=== PATIENT | male | born 1975 | race Caucasian/White ===

== ENCOUNTER → 2017-02-19 | Outpatient (CLI) | payer OTHER ==
[~2017-02-19] MED LIST: CEPH500C; ONDA4TAB11 PO; OSLT75C PO
--- NOTE | 2017-02-19 16:47 | Diagnostic Imaging Report ---
INDICATION: Right hip injury jumping off of a tractor. FINDINGS: Two views of the right hip show no fracture, dislocation, or other acute abnormalities. IMPRESSION: Negative right hip. Dictated by: Dictated on workstation # [id number]
== END ==
LOC: RAD 15:56
PROVIDERS: ATTEND Family Medicine
DX: S79.911A Unspecified injury of right hip, initial encounter (principal); W17.89XA Other fall from one level to another, initial encounter
CPT/HCPCS: 73502

== ENCOUNTER → 2017-07-04 | Outpatient (CLI) | payer OTHER ==
--- NOTE | 2017-07-04 11:15 | Diagnostic Imaging Report ---
Six views of the ribs, bilateral exam. INDICATION: Injury. FINDINGS: There is no rib fracture seen. The lungs appear clear. The heart size is normal. No effusion is noted. IMPRESSION: No rib fracture seen. Dictated by: Dictated on workstation # [id number]
--- NOTE | 2017-07-04 11:40 | Diagnostic Imaging Report ---
3 views of the lumbar spine. INDICATION: Injury. FINDINGS: There is straightening of the upper to mid lumbar spine curvature. The vertebral body heights are preserved. Disc heights are also preserved. The alignment of the posterior spinal line is satisfactory. There is no compression fracture. No significant degenerative changes. Minimal osteophytes are seen anteriorly in the lower lumbar spine. SI joints appear unremarkable. IMPRESSION: Straightening of the lumbar spine curvature is probably positional or related to muscle spasm. Dictated by: Dictated on workstation # [id number]
== END ==
LOC: RAD 10:08
PROVIDERS: ATTEND Family Medicine
DX: S39.92XA Unspecified injury of lower back, initial encounter (principal); S29.9XXA Unspecified injury of thorax, initial encounter; W55.89XA Other contact with other mammals, initial encounter; Y99.8 Other external cause status
CPT/HCPCS: 71110; 72100

== ENCOUNTER 2018-09-29 04:32 | Emergency (ER) | payer OTHER ==
[~2018-09-29] VITALS: Ht 185.4 cm; Wt 77.1 kg
[2018-09-29] MEDS ORDERED: ONDANSETRON 4 MG (ZOFRAN) ORAL DISSOLVE TAB SL ONE (05:00)
[2018-09-29] MEDS ORDERED: TETANUS,DIPTH,PERTUSS P/F (BOOSTRIX) 0.5 ML VIAL IM ONE (05:00)
--- NOTE | 2018-09-29 06:38 | ED Head Injury ---
General Chief Complaint: Head/Cervical Problems Stated Complaint: HEAD BUMP & LACERATION- Nursing Triage Note: Pt arrived by private vehicle with cc of head injury/laceration. Pt is alert, oriented and ambulatory at arrival. 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 Pt stated he got the bleeding to stop. He stated he almost lost consciousness and has been vomiting x 5. Source: patient Exam Limitations: no limitations History of Present Illness Date Seen by Provider: Sep 29, 2018 Time Seen by Provider: 04:45 Initial Comments This 43-year-old gentleman presents to the emergency room after striking his head on the corner of a metal box while at work. The incident occurred just after 03:00. He had hair loss of consciousness and has vomited several times since the injury occurred. He has a small laceration on the right parietal scalp that has quit bleeding. Allergies and Home Medications Allergies Coded Allergies: No Known Drug Allergies (Unverified Allergy, Mild, 05/12/09) Home Medications Ondansetron 4 Mg Tab.rapdis, 4 MG PO Q6H PRN Prescribed by: LAINA CLARK on 11/25/11 1618 Oseltamivir Phosphate 75 Mg Cap, 75 MG PO BID Prescribed by: LAINA CLARK on 11/25/11 1618 Patient Home Medication List Home Medication List Reviewed: Yes Review of Systems Review of Systems Constitutional: no symptoms reported Eyes: Blurred Vision Ears, Nose, Mouth, Throat: no symptoms reported Respiratory: no symptoms reported Cardiovascular: no symptoms reported Gastrointestinal: see HPI Genitourinary: no symptoms reported Musculoskeletal: no symptoms reported Skin: see HPI Psychiatric/Neurological: See HPI Endocrine: No Symptoms Reported Hematologic/Lymphatic: No Symptoms Reported Past Owrnloo-Wvxyny-Kuygwn Hx Past Med/Social Hx: Reviewed Nursing Past Med/Soc Hx Patient Social History Alcohol Use: Denies Use Recreational Drug Use: No Smoking Status: Never a Smoker Recent Foreign Travel: No Contact w/Someone Who Travel: No Recent Infectious Disease Expo: No Recent Hopitalizations: No Physical Abuse: No Sexual Abuse: No Mistreated: No Fear: No Seasonal Allergies Seasonal Allergies: No Past Medical History Surgeries: Yes (hernia ) Respiratory: No Cardiac: No Neurological: No Genitourinary: No Gastrointestinal: Yes Abdominal Hernia Musculoskeletal: No Endocrine: No HEENT: No Cancer: No Psychosocial: No Blood Disorders: No Physical Exam Vital Signs Vital Signs - First Documented 09/29/18 04:40 Temp 96.2 Pulse 74 Resp 18 B/P (MAP) 124/82 (96) Pulse Ox 98 O2 Delivery Room Air Capillary Refill : Less Than 3 Seconds Height, Weight, BMI Height: 6'1.00" Weight: 170lbs. 0oz. [id number]; BMI Method:Stated General Appearance: WD/WN, no apparent distress HEENT: PERRL/EOMI, TMs normal, other (subcentimeter laceration on the right parietal scalp there is no longer bleeding. This area is quite tender.) Neck: non-tender, full range of motion, supple, normal inspection Cardiovascular: regular rate, rhythm, no edema, no murmur Respiratory: lungs clear, normal breath sounds, no respiratory distress, no accessory muscle use Extremities: normal inspection, no pedal edema Psychiatric: alert Crainal Nerves: normal hearing, normal speech, PERRL Coordination/Gait: normal finger to nose, normal gait Motor/Sensory: no motor deficit, no sensory deficit Skin: normal color, warm/dry Henna Coma Score Best Eye Response: (4) Open Spontaneously Best Verbal Response: (5) Oriented Best Motor Response: (6) Obeys Commands Henna Total: 15 Progress/Results/Core Measures Results/Orders My Orders Orders - FILI NIEVES MD Vaccine Administration Single (09/29/18 ) Medications Given in ED Vital Signs/I&O Blood Pressure Mean: 96 Progress Progress Note : Progress Note Because patient has been significantly symptomatic with blurred vision, repeated vomiting, and near syncope, CT of the head was felt appropriate. CT was unremarkable for acute injury or hemorrhage. Tetanus booster was administered and Zofran was given for nausea. Concussion precautions reviewed and occupational health paperwork completed. Diagnostic Imaging Diagonstic Imaging: CT Plain Films/CT/US/NM/MRI: head Comments CT head viewed by me and [facility] report reviewed. No acute injury identified. Departure Impression Primary Impression: Concussion without loss of consciousness Qualified Codes: S06.0X0A - Concussion without loss of consciousness, initial encounter Additional Impression: Laceration of scalp Qualified Codes: S01.01XA - Laceration without foreign body of scalp, initial encounter Disposition: HOME, SELF-CARE Condition: Improved Departure-Patient Inst. Decision time for Depature: 06:34 Referrals: ALVINO TERRAZAS DO (PCP/Family) Primary Care Physician Patient Instructions: Concussion, Adult (DC) Add. Discharge Instructions: Rest in a quiet calm environment for the remainder of the day. Do not return to work or any type of strenuous activity until cleared by occupational health or another physician. If any activity causes worsening concussion symptoms including headache, blurry vision, confusion, nausea, irritability, etc., then please stop that activity and rest. Avoid any activity that would predispose you to further head injury such as use of ladders, contact sports, horseback or ATV riding, etc. until cleared. Drink plenty of clear liquids. For pain in May take ibuprofen up to 600 mg every 6 hours as needed and/or Tylenol (acetaminophen) up to 1000 mg every 6 hours. All discharge instructions reviewed with patient and/or family. Voiced understanding. FILI NIEVES MD Sep 29, 2018 06:38
[2018-09-29 06:43] VITALS: BP 107/74
--- NOTE | 2018-09-29 08:12 | Diagnostic Imaging Report ---
CLINICAL INDICATION: Patient with head injury/laceration. Patient hit head on metal box. Patient almost lost consciousness and has been vomiting x5. EXAMINATION: Axial CT scan of the brain performed without IV contrast. COMPARISON: None. FINDINGS: BRAIN PARENCHYMA: Unremarkable with normal acosta/ white matter distinction. There is no significant architectural distortion, midline shift, or herniation. VENTRICLES: Unremarkable with no hydrocephalus. BASAL CISTERNS: Unremarkable. SKULL/ ORBITS: Unremarkable. VISUALIZED SINUSES/ MASTOIDS: Unremarkable. IMPRESSION: Unremarkable CT scan of the brain. I agree with [facility] report. Dictated by: Dictated on workstation # [id number]
== END 2018-09-29 06:43 | disposition home or self-care (01) ==
LOC: EDUNIT# 04:32 → ER 04:37
DX: S06.0X0A Concussion without loss of consciousness, initial encounter (principal); S01.01XA Laceration without foreign body of scalp, initial encounter; Z98.890 Other specified postprocedural states; Z87.19 Personal history of other diseases of the digestive system; Z23 Encounter for immunization; W22.09XA Striking against other stationary object, initial encounter; Y92.85 Railroad track as the place of occurrence of the external cause; Y99.0 Civilian activity done for income or pay
CPT/HCPCS: 70450; 90715

== ENCOUNTER → 2018-12-24 | Outpatient (CLI) | payer OTHER ==
[~2018-12-24] MED LIST changes: +GADOBUTROL 7.5 MMOL/7.5 ML (GADAVIST) VIAL IV ONE
--- NOTE | 2018-12-24 09:32 | Diagnostic Imaging Report ---
CLINICAL INDICATION: Patient hit in head at work in September 2018. Patient has concussion, headaches, dizziness since. EXAM: MRI of the brain performed without and with 7 cc of Gadavist IV contrast. Sequences include axial DWI, ADC map, axial gradient echo, axial T2, axial FLAIR, axial T1, axial T1 post IV contrast, coronal T1 fat-sat post IV contrast, and sagittal T1 post IV contrast. COMPARISON: Head CT without contrast dated 09/29/2018. FINDINGS: There is no evidence of acute cerebral infarct, intracranial hemorrhage, or gross mass effect. There is no abnormal IV contrast enhancement. The brain parenchymal volume appears appropriate for patient's age. There is normal shah-white matter distinction. There is no significant midline shift or herniation. The [place] vascular structures show no gross abnormality as visualized. The pituitary gland, sella, and suprasellar regions are unremarkable as visualized. There is no evidence of hydrocephalus. The basal cisterns are unremarkable. The skull, extracranial soft tissue, and orbits are unremarkable. There is mild mucosal thickening involving ethmoid sinus. Temporal bones show no significant abnormality. IMPRESSION: Mild ethmoid sinus mucosal thickening. Otherwise, unremarkable MRI of the brain. Dictated by: Dictated on workstation # [id number]
== END ==
LOC: RAD 07:39
PROVIDERS: ATTEND Family Medicine
DX: S06.0X9A Concussion with loss of consciousness of unspecified duration, initial encounter (principal); J34.89 Other specified disorders of nose and nasal sinuses; R51 Headache
CPT/HCPCS: 70553

== ENCOUNTER 2019-01-19 19:54 | Emergency (ER) | payer OTHER ==
[~2019-01-19] VITALS: Ht 185.4 cm; Wt 70.3 kg
[~2019-01-19 19:54] MED LIST changes: -GADOBUTROL 7.5 MMOL/7.5 ML (GADAVIST) VIAL IV ONE
[2019-01-19] MEDS ORDERED: KETOROLAC 30 MG/ML VIAL IVP STA (20:16)
[2019-01-19] MEDS ORDERED: LACTATED RINGERS 1,000 ML IV ONE ×2 (20:16→21:49)
[2019-01-19] MEDS ORDERED: diphenhydrAMINE 50 MG/ML INJ (BENADRYL) IVP ONE (20:30)
[2019-01-19] MEDS ORDERED: ONDANSETRON 4 MG/2 ML (SDV) Z0FRAN IVP ONE (20:30)
[2019-01-19 21:09] LABS: BASOPHILS # (AUTO) 0.1 10^3/uL (0.0-0.1); BASOPHILS % (AUTO) 1 % (0-10); EOSINOPHILS # (AUTO) 0.1 10^3/uL (0.0-0.3); EOSINOPHILS % (AUTO) 2 % (0-10); HEMATOCRIT 44 % (40-54); LYMPHOCYTES % (AUTO) 25 % (12-44); MEAN CORPUSCULAR HEMOGLOBIN 32 PG (25-34); MEAN CORPUSCULAR HGB CONC 35 G/DL (32-36); MEAN CORPUSCULAR VOLUME 92 FL (80-99); MEAN PLATELET VOLUME 11.6 FL (7.4-10.4); MONOCYTES # (AUTO) 0.5 X 10^3 (0.0-1.0); MONOCYTES % (AUTO) 7 % (0-12); NEUTROPHILS # (AUTO) 5.1 X 10^3 (1.8-7.8); NEUTROPHILS % (AUTO) 66 % (42-75); PLATELET COUNT 275 10^3/uL (130-400); RED CELL DISTRIBUTION WIDTH 12.5 % (10.0-14.5); WHITE BLOOD COUNT 7.8 10^3/uL (4.3-11.0)
--- NOTE | 2019-01-19 21:10 | ED Headache ---
General Chief Complaint: Head/Cervical Problems Stated Complaint: HEADACHE Nursing Triage Note: PT HAD A HEAD INJURY IN SEPTEMBER AND SINCE HE HAS HAD MIGRAINES. MIGRAINE STARTED TODAY ABOUT AN HR AGO Nursing Sepsis Screen: No Definite Risk Source: patient (VERY DIFFICULT HISTORIAN) History of Present Illness Date Seen by Provider: January 19, 2019 Time Seen by Provider: 20:00 Initial Comments PT ARRIVES VIA POV FROM HOME WITH C/O HEADACHE--STARTED 30 MINUTES AGO STATES HE WAS SITTING IN HIS TRUCK AND HIS HEAD STARTED POUNDING AND THEN HE ' "DOESN'T REMEMBER ANYTHING" C/O NAUSEA, DOES NOT KNOW IF HE VOMITED OR NOT NO VISION CHANGES NO PARESTHESIAS OR MOTOR DEFICITS NO FEVER, URI SYMPTOMS OR RECENT ILLNESS HAS NOT TAKEN ANYTHING FOR SYMPTOMS STATES HE HAD A HEAD INJURY IN SEPTEMBER--WAS AT WORK AND FELL AND HIT HIS HEAD ON A METAL BOX HAS BEEN HAVING HEADACHES EVER SINCE HAD MRI 12/24/18, WHICH WAS NORMAL PT HAS BEEN REFERRED TO NEUROLOGIST, DR. RAMAN, FIRST APPOINTMENT IS 02/25/19 PT HAS BEEN SEEING DR. TERRAZAS FOR THIS PROBLEM, WELL OCCUPATIONAL HEALTH. PT STATES HE HAS BEEN TAKING XANAX FOR HIS HEADACHES, STATES WHEN HIS HEAD STARTS POUNDING, HE GETS REAL ANXIOUS AND THEN HAS A PANIC ATTACK BECAUSE OF THE HEADACHE STATES HE HAS BEEN PRESCRIBED A COUPLE OF MEDICATIONS FOR HEADACHES, BUT STATES HE HAS NOT BEEN TAKING THEM BECAUSE THEY UPSET HIS STOMACH PT ALSO STATES HE HAS LOST OVER 50 LBS SINCE THIS STARTED IN SEPTEMBER--STATES HE GETS ANXIOUS AND THEN HE CAN'T EAT. STATES DR. TERRAZAS STARTED HIM ON A MEDICATION TO STIMULATE HIS APPETITE, BUT HE HAS NOT BEEN TAKING IT, BECAUSE HE DIDN'T LIKE THE WAY HE FELT WHEN HE TOOK IT, BUT CANNOT DESCRIBE SYMPTOMS. TO MOST QUESTIONS, HE ANSWERS "I DON'T KNOW" OR "I DON'T REMEMBER" SAW DR. TERRAZAS THIS AM FOR ROUTINE FOLLOW UP. ALSO SAW HIM A WEEK AGO FOR FOLLOW UP PCP: DR. TERRAZAS Allergies and Home Medications Allergies Coded Allergies: No Known Drug Allergies (Unverified , 05/12/09) Home Medications Ondansetron 4 Mg Tab.rapdis, 4 MG PO Q6H PRN Prescribed by: LAINA CLARK on 11/25/11 1618 Oseltamivir Phosphate 75 Mg Cap, 75 MG PO BID Prescribed by: LAINA CLARK on 11/25/11 1618 Patient Home Medication List Home Medication List Reviewed: Yes Review of Systems Review of Systems Constitutional: No dizziness Eyes: No Symptoms Reported Ears, Nose, Mouth, Throat: no symptoms reported Respiratory: no symptoms reported Cardiovascular: no symptoms reported Gastrointestinal: see HPI, nausea Genitourinary: no symptoms reported Musculoskeletal: no symptoms reported Skin: no symptoms reported Psychiatric/Neurological: See HPI, Anxiety, Headache; Denies Numbness, Denies Paresthesia, Denies Seizure, Denies Tingling; Tremors; Denies Weakness Past Mpddqjo-Mvxcec-Idixzz Hx Patient Social History Alcohol Use: Denies Use Recreational Drug Use: No Smoking Status: Never a Smoker Recent Foreign Travel: No Contact w/Someone Who Travel: No Recent Infectious Disease Expo: No Recent Hopitalizations: No Seasonal Allergies Seasonal Allergies: No Past Medical History Surgeries: Yes (HERNIA REPAIR) Abdominal Respiratory: No Cardiac: No Neurological: Yes (CONCUSSION 09/2018) Concussion Genitourinary: No Gastrointestinal: Yes Abdominal Hernia Musculoskeletal: No Endocrine: No HEENT: No Cancer: No Psychosocial: Yes Anxiety Integumentary: No Blood Disorders: No Physical Exam Vital Signs Vital Signs - First Documented 01/19/19 20:03 Temp 97.9 Pulse 84 Resp 18 B/P (MAP) 135/77 (96) Pulse Ox 100 O2 Delivery Room Air Capillary Refill : Less Than 3 Seconds Height, Weight, BMI Height: 6'1.00" Weight: 155lbs. 0oz. 70.113385uv; BMI Method:Stated General Appearance: thin, other (EXTREMELY DRAMATIC AND NEARLY HYSTERICAL. VERY TREMULOUS. EXTREMELY ANXIOUS, HOLDING HIS HANDS OVER HIS FOREHEAD AND EYES . CRYING AT ONE POINT. ) HEENT: PERRL/EOMI, normal ENT inspection, TMs normal, pharynx normal Neck: non-tender, full range of motion, supple, normal inspection Cardiovascular: regular rate, rhythm, no murmur Respiratory: normal breath sounds, no respiratory distress, no accessory muscle use Gastrointestinal: non tender, soft Extremities: normal inspection, no pedal edema, no calf tenderness, normal capillary refill Psychiatric: alert, oriented x 3, other ( ABOVE. ) Crainal Nerves: normal speech, PERRL Coordination/Gait: normal gait Motor/Sensory: no motor deficit, no sensory deficit Skin: normal color, warm/dry Progress/Results/Core Measures Results/Orders Lab Results Laboratory Tests Test 01/19/19 20:35 Range/Units White Blood Count 7.8 4.3-11.0 10^3/uL Red Blood Count 4.75 4.35-5.85 10^6/uL Hemoglobin 15.0 13.3-17.7 G/DL Hematocrit 44 40-54 % Mean Corpuscular Volume 92 80-99 FL Mean Corpuscular Hemoglobin 32 25-34 PG Mean Corpuscular Hemoglobin Concent 35 32-36 G/DL Red Cell Distribution Width 12.5 10.0-14.5 % Platelet Count 275 130-400 10^3/uL Mean Platelet Volume 11.6 H 7.4-10.4 FL Neutrophils (%) (Auto) 66 42-75 % Lymphocytes (%) (Auto) 25 12-44 % Monocytes (%) (Auto) 7 0-12 % Eosinophils (%) (Auto) 2 0-10 % Basophils (%) (Auto) 1 0-10 % Neutrophils # (Auto) 5.1 1.8-7.8 X 10^3 Lymphocytes # (Auto) 2.0 1.0-4.0 X 10^3 Monocytes # (Auto) 0.5 0.0-1.0 X 10^3 Eosinophils # (Auto) 0.1 0.0-0.3 10^3/uL Basophils # (Auto) 0.1 0.0-0.1 10^3/uL Sodium Level 143 135-145 MMOL/L Potassium Level 3.8 3.6-5.0 MMOL/L Chloride Level 107 98-107 MMOL/L Carbon Dioxide Level 24 21-32 MMOL/L Anion Gap 12 5-14 MMOL/L Blood Urea Nitrogen 18 7-18 MG/DL Creatinine 1.19 0.60-1.30 MG/DL Estimat Glomerular Filtration Rate > 60 BUN/Creatinine Ratio 15 Glucose Level 101 70-105 MG/DL Calcium Level 10.6 H 8.5-10.1 MG/DL Corrected Calcium 10.2 H 8.5-10.1 MG/DL Magnesium Level 2.6 H 1.8-2.4 MG/DL Total Bilirubin 0.5 0.1-1.0 MG/DL Aspartate Amino Transf (AST/SGOT) 15 5-34 U/L Alanine Aminotransferase (ALT/SGPT) 20 0-55 U/L Alkaline Phosphatase 44 40-136 U/L Total Protein 7.4 6.4-8.2 GM/DL Albumin 4.5 3.2-4.5 GM/DL My Orders Orders - HAMILTON URIBE DO Ed Iv/Invasive Line Start (01/19/19 20:16) Ed Iv/Invasive Line Start (01/19/19 20:16) Lactated Ringers (Lr 1000 Ml Iv Solution (01/19/19 20:16) Ondansetron Injection (Zofran Injectio (01/19/19 20:30) Ketorolac Injection (Toradol Injection) (01/19/19 20:16) Diphenhydramine Injection (Benadryl Inje (01/19/19 20:30) Lorazepam Injection (Ativan Injection) (01/19/19 21:15) Cbc With Automated Diff (01/19/19 21:02) Comprehensive Metabolic Panel (01/19/19 21:02) Magnesium (01/19/19 21:02) Ed Iv/Invasive Line Start (01/19/19 21:49) Lactated Ringers (Lr 1000 Ml Iv Solution (01/19/19 21:49) Medications Given in ED Current Medications Medications Dose Ordered Sig/Myesha Route Start Time Stop Time Status Last Admin Dose Admin Diphenhydramine HCl 50 mg ONCE ONCE IVP 01/19/19 20:30 01/19/19 20:31 DC 01/19/19 20:34 50 MG Lactated Ringer's 1,000 ml @ 0 mls/hr Q0M ONCE IV 01/19/19 20:16 01/19/19 20:19 DC 01/19/19 20:33 999 MLS/HR Lactated Ringer's 1,000 ml @ 0 mls/hr Q0M ONCE IV 01/19/19 21:49 01/19/19 21:50 DC 01/19/19 22:00 999 MLS/HR Lorazepam 2 mg ONCE ONCE IVP 01/19/19 21:15 01/19/19 21:58 DC 01/19/19 21:11 2 MG Ondansetron HCl 4 mg ONCE ONCE IVP 01/19/19 20:30 01/19/19 20:31 DC 01/19/19 20:34 4 MG Vital Signs/I&O 5/7/19 5/7/19 20:03 22:38 Temp 97.9 97.9 Pulse 84 79 Resp 18 18 B/P (MAP) 135/77 (96) 105/66 (79) Pulse Ox 100 100 O2 Delivery Room Air 01/20/19 00:00 Intake Total 2000 ml Balance 2000 ml Blood Pressure Mean: 96 Progress Progress Note : Progress Note WANTS ICE PACK FOR HIS HEAD AND TOWEL FOR HIS FACE/EYES--YET DENIES PHOTOPHOBIA GIVEN TORADOL, ZOFRAN, BENADRYL, ATIVAN PT MUCH CALMER, NO LONGER TREMULOUS, PT NO LONGER HAS HAND OR TOWEL OVER FACE OR ICE PACK ON HIS HEAD SITTING UPRIGHT IN BED. PT STATES SYMPTOMS MUCH IMPROVED WITH FLUIDS AND MEDICATIONS, WANTS TO GO HOME Departure Impression Primary Impression: EXACERBATION OF CHRONIC HEADACHE Additional Impressions: S/P CONCUSSION 09/2018 Anxiety Disposition: HOME, SELF-CARE Condition: Improved Departure-Patient Inst. Referrals: ALVINO TERRAZAS DO (PCP/Family) Primary Care Physician Patient Instructions: Headache, Adult (DC), Concussion, Adult (DC), Anxiety, Adult (DC) Add. Discharge Instructions: HOME, REST LOTS OF CLEAR LIQUIDS TAKE YOUR MEDICATIONS PRESCRIBED FOLLOW UP WITH DR. TERRAZAS THIS WEEK FOR FURTHER CARE All discharge instructions reviewed with patient and/or family. Voiced understanding. HAMILTON URIBE DO January 19, 2019 21:10
[2019-01-19] MEDS ORDERED: LORazepam INJ 2 MG/ML (ATIVAN) VIAL IVP ONE (21:15)
[2019-01-19 21:21] LABS: ALANINE AMINOTRANSFERASE 20 U/L (0-55); ALBUMIN 4.5 GM/DL (3.2-4.5); ALKALINE PHOSPHATASE 44 U/L (40-136); BILIRUBIN,TOTAL 0.5 MG/DL (0.1-1.0); BUN/CREATININE RATIO 15; CALCIUM 10.6 MG/DL (8.5-10.1); CARBON DIOXIDE 24 MMOL/L (21-32); CHLORIDE 107 MMOL/L (98-107); CREATININE SERUM 1.19 MG/DL (0.60-1.30); GFR ESTIMATED > 60; GLUCOSE 101 MG/DL (70-105); MAGNESIUM 2.6 MG/DL (1.8-2.4); POTASSIUM 3.8 MMOL/L (3.6-5.0); SODIUM 143 MMOL/L (135-145); TOTAL PROTEIN 7.4 GM/DL (6.4-8.2)
[2019-01-19 22:38] VITALS: BP 105/66
== END 2019-01-19 22:39 | disposition home or self-care (01) ==
LOC: EDUNIT# 19:54 → ER 19:55
DX: S06.0X9A Concussion with loss of consciousness of unspecified duration, initial encounter (principal); F41.9 Anxiety disorder, unspecified; Z98.890 Other specified postprocedural states; Z86.69 Personal history of other diseases of the nervous system and sense organs; Z91.14 Patient's other noncompliance with medication regimen; X58.XXXA Exposure to other specified factors, initial encounter
CPT/HCPCS: 36415; 80053; 83735; 85025; 96361; 96374; 96375

== ENCOUNTER 2019-03-03 10:00 | Emergency (ER) | payer OTHER ==
[~2019-03-03] VITALS: Ht 182.9 cm; Wt 70.3 kg
[2019-03-03] MEDS ORDERED: diphenhydrAMINE 50 MG/ML INJ (BENADRYL) ONE (10:53)
[2019-03-03] MEDS ORDERED: PROMETHAZINE INJ 25 MG/ML (PHENERGAN) AMP ONE (10:53)
[2019-03-03] MEDS ORDERED: KETOROLAC 30 MG/ML VIAL ONE (10:54)
[2019-03-03] MEDS ORDERED: NS IV 1000 ML 1,000 ML ONE (10:54)
[2019-03-03] MEDS ORDERED: DEXAMETHASONE 10 MG/ML (DECADRON) 1 ML VIAL ONE (10:54)
--- NOTE | 2019-03-03 11:45 | NUR ---
PT COMPLAINS OF FEELING ANXIOUS AND HAVING SOME ITCHING ON HIS LEGS. DR NOTIFIED WHO WENT AND TALKED TO THE PT.
[2019-03-03] MEDS ORDERED: diphenhydrAMINE 50 MG/ML INJ (BENADRYL) IVP ONE ×2 (12:00→12:30)
--- NOTE | 2019-03-03 12:15 | NUR ---
PT UP TO BATHROOM..
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
[2019-03-03] MEDS ORDERED: NS IV 1000 ML 1,000 ML IV SCH (12:30)
[2019-03-03] MEDS ORDERED: PROMETHAZINE INJ 25 MG/ML (PHENERGAN) AMP IVP ONE (12:30)
[2019-03-03] MEDS ORDERED: DEXAMETHASONE 10 MG/ML (DECADRON) 1 ML VIAL IV ONE (12:30)
[2019-03-03] MEDS ORDERED: KETOROLAC 30 MG/ML VIAL IVP ONE (12:30)
[2019-03-03 12:50] VITALS: BP 109/64
--- OUTSIDE RECORDS SUMMARY | 2019-03-03 13:29 | XMS REPORT | Encounter Summary ---
Author Author [facility] Organization [facility] Address Unknown Phone Unavailable Care Team Providers Care Apparel Sales Associate Name Role Phone Girish Varghese DO PCP Reason for Visit * Reason Comments Headache Encounter Details Care Team Description Date Type Department Sher Phelps MD [address] [facility] [place] [address] 01/26/2019 Emergency [facility] [address] [place] [address] Social History Date Tobacco Use Types Packs/Day Years Used Never Smoker Smokeless Tobacco: Never Used Drinks/Week oz/Week Comments Alcohol Use Never Alcohol Habits Answer Date Recorded How often do you have a drink containing alcohol? Never 01/26/2019 How many drinks containing alcohol do you have on Not asked a typical day when you are drinking? How often do you have six or more drinks on one Not asked occasion? Sex Assigned at Date Recorded Not on file Industry Job Start Date Occupation Not on file Not on file Not on file Travel End Travel History Travel Start No recent travel history available. documented as of this encounter Last Filed Vital Signs Reading Time Taken Comments Vital Sign 96/67 01/26/2019 12:26 PM CDT Blood Pressure - - Pulse 36.5 C (97.7 F) 01/26/2019 7:54 AM CDT Temperature - - Respiratory Rate 98% 01/26/2019 12:26 PM CDT Oxygen Saturation - - Inhaled Oxygen Concentration 70.8 kg (156 lb) 01/26/2019 7:54 AM CDT Weight - - Height - - Body Mass Index documented in this encounter Discharge Instructions * Instructions* Darnell Matta MD - 01/26/2019 You were seen at the [facility] Emergency Department for headaches aft er a concussion. Your imaging and exam were reassuring. Neurology was consulte d who recommended a combination of ibuprofen 600 mg, Compazine 10 mg, Benadryl 2 5 mg, magnesium 400 mg to use for your headache symptoms. You can use this comb ination up to every 6 hours. Do not use greater than 5 times per week. You can use this to terminate severe headaches. You can also start on amitriptyline 10 mg nightly for the next 2 weeks. Increase this to 20 mg nightly after that shital e. Take this until your follow-up with neurology. Return to the emergency depa rtment for any numbness, weakness, uncontrolled pain, or new concerning symptoms . Follow-up with your primary care provider and a neurologist for this visit. If you received any narcotic pain medications or sedatives while in the ED you s hould not drive/operate machinery or perform any high risk activity for 24 hours , or while on those medications. This includes any pain medication other than ty lenol, ibuprofen, or toradol. This includes any medication for anxiety. If your blood pressure is over 130/90, you should see your doctor to get your bl ood pressure rechecked. Please report to nearest emergency department for any sudden decline in overall health, new symptoms, or any other concern. * Attachments The following attachments cannot be sent through Care Everywhere.* Headache, Migraine, Classic (SCOTTISH) documented in this encounter Medications at Time of Discharge Start Date End Date Medication Sig Dispensed Refills 01/26/2019 03/09/2019 amitriptyline (ELAVIL) 10 Take one 70 tablet 0 mg tablet tablet by mouth at bedtime daily for 14 days, THEN two tablets at bedtime daily for 28 days. 01/26/2019 Magnesium 200 mg tab Take two 20 tablet 0 tablets by mouth every 6 hours as needed. With headache cocktail 01/26/2019 prochlorperazine maleate Take one 20 tablet 0 (COMPAZINE) 10 mg tablet tablet by mouth every 6 hours as needed (Headache). documented as of this encounter Consult Notes * Erwin Ricci MD - 01/26/2019 9:56 AM CDT Associated Order(s): CONSULT NEUROLOGY PHYSICIAN Neurology Consult Note Admission Date: 01/26/2019 LOS: 0 days Reason for Consult: Headache after head injury and syncope Consult type: Opinion Assessment Nael Molina is a 43 y.o. male with no past medical history who presents for h eadache and episodes of syncope with severe headaches and vomiting. Neuro Exam: Wearing sunglasses, normal neurological exam, able to walk tandem gait with ease Diagnostics/Imaging: CT head and MRI head from OSH appear unremarkable Impression Post concussive syndrome with post traumatic headaches that are chronic. Episodes sounds like syncope, but if continue even with headache control could c onsider EEG outpatient. Recommendations Amitriptyline 10mg qhs for two weeks then can increase to 20mg qhs Migraine cocktail for abortive as needed. Not to take more than 5x a week Ibuprofen 600mg Compazine 10mg Benadryl 25mg Magnesium 400mg Patient already has follow up in February with Neurologist closer to home. Patient was seen and discussed with staff. Thank you for the consult. Please page [phone] with questions. Ozzy Ricci MD PGY 4 Neurology History of Present Illness: Nael Molina is a 43 y.o. male with no past medical history who presents for headache and episodes of syncope with severe headaches and vomiting. Patient hit head at work on September 29 when head hit a metal box. He started to have headaches October 02-. He gets headaches daily to every oth er day. He has a hammer feeling in his head on top of head where he had hit his head. He has intense nausea and vomiting with these episodes. He also has photo/ phonophobia with them. He has lost forty pounds he states with decreased appetit e and vomiting. He passed out two times after a lot of vomiting. He was standing up when he passed out. He has had light headed feeling with the headaches at ti mes as well. No seizure history. No shaking episodes. Comes back to self quickly . He has not tried any meds besides naprosyn and excedrin migraine. PCP gave him xanax and tried Remeron. Neither have helped and stopped Remeron. He has not ta donnell any meds in 2 weeks. He has never tried headache prophylactice. He states ma ybe a little balance trouble and memory trouble with headaches. History reviewed. No pertinent past medical history. Surgical History: Procedure Laterality Date HERNIA REPAIR Social History Tobacco Use Smoking status: Not on file Substance Use Topics Alcohol use: Never Frequency: Never Drug use: Never History reviewed. No pertinent family history. Allergies: Patient has no known allergies. Scheduled Meds:Continuous Infusions: PRN and Respiratory Meds: Review of Systems: A 14 point review of systems was negative except for: Neurological: positive for headaches Vital Signs: Last Filed in 24 hours Vital Signs: 24 hour Range BP: 119/92 (01/26 754) Temp: 36.5 C (97.7 F) (01/26 754) SpO2: 98 % (01/26 754) SpO2 Pulse: 75 (01/26 754) BP: (119)/(92) Temp: [36.5 C (97.7 F)] SpO2: [98 %] General physical exam: HEENT: normocephalic, eyes open with no discharge, nares patent, oropharynx is c lear with no lesions, palate intact CV: regular rate, distal pulses palpable Chest: normal configuration, equal chest rise bilaterally Ab: soft Skin: no rashes or lesions Neuro exam: Mental status: alert, oriented to person/place/time Speech: Normal Abnormal Fluency x Comprehension x Articulation x Repetition x Naming x Cranial Nerves: Normal Abnormal II PERRLA, visual schaefer full to confrontation III, IV, EOMI w/o nystagmus V Intact to light touch in V1-V3 bilaterally VII No facial asymmetry, orbicularis oculi and tasha strength 5/5 VIII Intact to finger rub bilaterally IX, X Symmetric palatal elevation XI Shoulder shrug 5/5 bilaterally XII Tongue protrudes in midline Muscle/motor: Tone: nml Bulk: nml Fasciculations: none Pronator drift: none NF NE SA EF EE WE WF FF FE FA TA HF DIAZ HE KF KE DF PF R 5 5 5 5 5 5 5 5 5 5 5 5 5 5 5 5 L 5 5 5 5 5 5 5 5 5 5 5 5 5 5 5 5 Sensation: Normal RUE LUE RLE LLE Light Touch x Coordination: Normal Abnormal Right Abnormal Left Finger to Nose x Heel to Caba x Gait and Station: Normal gait with good arm swing. Normal heel, toe, and tandem gait. No decomposi tion of turn. Reflexes: Right Left Triceps 2 2 Biceps 2 2 Brachioradialis 2 2 Patella 2 2 Ankle 2 2 Suarez nl nl Lab/Radiology/Other Diagnostic Tests: 24-hour labs: Results for orders placed or performed during the hospital encounter of 01/26/19 (from the past 24 hour(s)) CBC AND DIFF Collection Time: 01/26/19 8:55 AM Result Value Ref Range White Blood Cells 6.0 4.5 - 11.0 K/UL RBC 4.63 4.4 - 5.5 M/UL Hemoglobin 14.9 13.5 - 16.5 GM/DL Hematocrit 44.2 40 - 50 % MCV 95.4 80 - 100 FL MCH 32.1 26 - 34 PG MCHC 33.6 32.0 - 36.0 G/DL RDW 12.5 11 - 15 % Platelet Count 251 150 - 400 K/UL MPV 9.3 7 - 11 FL Neutrophils 62 41 - 77 % Lymphocytes 25 24 - 44 % Monocytes 10 4 - 12 % Eosinophils 2 0 - 5 % Basophils 1 0 - 2 % Absolute Neutrophil Count 3.70 1.8 - 7.0 K/UL Absolute Lymph Count 1.50 1.0 - 4.8 K/UL Absolute Monocyte Count 0.60 0 - 0.80 K/UL Absolute Eosinophil Count 0.10 0 - 0.45 K/UL Absolute Basophil Count 0.00 0 - 0.20 K/UL COMPREHENSIVE METABOLIC PANEL Collection Time: 01/26/19 8:55 AM Result Value Ref Range Sodium 137 137 - 147 MMOL/L Potassium 4.0 3.5 - 5.1 MMOL/L Chloride 104 98 - 110 MMOL/L Glucose 92 70 - 100 MG/DL Blood Urea Nitrogen 15 7 - 25 MG/DL Creatinine 0.97 0.4 - 1.24 MG/DL Calcium 9.8 8.5 - 10.6 MG/DL Total Protein 7.0 6.0 - 8.0 G/DL Total Bilirubin 0.4 0.3 - 1.2 MG/DL Albumin 4.3 3.5 - 5.0 G/DL Alk Phosphatase 40 25 - 110 U/L AST (SGOT) 10 7 - 40 U/L CO2 28 21 - 30 MMOL/L ALT (SGPT) 13 7 - 56 U/L Anion Gap 5 3 - 12 eGFR Non >60 >60 mL/min eGFR >60 >60 mL/min Ozzy Ricci MD Pager [phone] Associated attestation - Michael Brady MD - 01/28/2019 6:09 PM CDT ATTESTATION I personally performed the lund portions of the E/M visit, discussed case with re sident and concur with resident documentation of history, physical exam, assessm ent, and treatment plan unless otherwise noted. I saw and examined the patient today on rounds with Dr. Ricci and the rest of the neurology consultation team. Laboratory results were reviewed. WBC 6.0. Hgb 14.9. MCV 95.4. RDW 12.5. Platele ts 251k. Sodium 137. Potassium 4.0. Chloride 104. Glucose 92. BUN 15. Cr 0.97. e GFR > 60. Calcium 9.8. Albumin 4.3. Total protein 7.0. Total bilirubin 0.4. AST 10. ALT 13. Alk phos 40. CO2 28. Anion gap 5. Independent review of his head CT without contrast from today, January 26, 2019 show s evidence of a completely normal scan. I reviewed Dr. Ricci's impression and summarize my own impression as follows: - Post-concussive syndrome. - Chronic post-traumatic headache. - Syncope, unspecified. I agree with Dr. Ricci's recommendations. Thank you for requesting a neurology consultation. Please call with any questions. Michael Brady MD Date: January 26, 2019 Neurology/Movement Disorders Attending Pager [phone] documented in this encounter ED Notes * Ani Siddiqui RN - 01/26/2019 1:34 PM CDT Pt verbalizes understanding of discharge instructions and has no further questio ns. * Ani Siddiqui RN - 01/26/2019 12:34 PM CDT Pt states significant improvement in headache. * Ani Siddiqui RN - 01/26/2019 8:42 AM CDT Pt comes to the ED for recurring head aches. September 29 pt was involved in a wor kplace accident where he fell and hit the top of his head. Pt followed the concu ssion protocol from initial facility. Since accident he has had recurrent headac hes. On two occasions, most recently last Friday, the pain was so intense suzan t he lost consciousness. Headaches are occasionally associated with blurry visio n in right eye. Hat, sunglasses, vest, shirt, pants, boots remain on. Pt does not wish to store belongings at this time. * Sher Phelps MD - 01/26/2019 8:40 AM CDT Nael Molina is a 43 y.o. male. Chief Complaint: Chief Complaint Patient presents with Headache History of Present Illness: Patient is a 43-year-old male with no significant PMH presenting with headaches . The patient reports that September 29 he had a mechanical fall when he did hit his head on a metal box. He is unsure if he lost consciousness at that time but had a severe laceration with vomiting that followed. He was taken to the emerg ency department where CT scan and repair of his laceration was performed. He re ports that he had been off work until December 08. He states that he has had recur rent headaches since that time. He said most recently he has started work and i s having headaches every other day. He states that the symptoms are often accom panied by nausea, right eye vision change, right-sided sharp headaches, lighthea dedness. He endorses weight change due to the amount of vomiting and inversion of food. He states he is followed up with his primary care provider who was mos t recently concerned as the headaches and vomiting are then followed by syncopal episodes. The patient reports after retching vomiting he has syncope. He axel es any headache at this time. He denies any chest pain, shortness of breath, ne ck stiffness, fever. History provided by: Patient Review of Systems: Review of Systems Constitutional: Negative. Negative for chills, fatigue and fever. HENT: Negative. Negative for congestion and sinus pain. Eyes: Positive for visual disturbance. Respiratory: Negative for cough, shortness of breath and wheezing. Cardiovascular: Negative. Negative for chest pain. Gastrointestinal: Positive for nausea and vomiting. Negative for abdominal diste ntion, abdominal pain, constipation and diarrhea. Genitourinary: Negative. Negative for dysuria and urgency. Musculoskeletal: Negative. Negative for neck pain and neck stiffness. Skin: Negative. Negative for rash. Neurological: Positive for syncope and headaches. Negative for dizziness, seizur es, weakness, light-headedness and numbness. Psychiatric/Behavioral: Negative. Negative for agitation and confusion. All other systems reviewed and are negative. Allergies: Patient has no known allergies. Past Medical History: History reviewed. No pertinent past medical history. Past Surgical History: Surgical History: Procedure Laterality Date HERNIA REPAIR Pertinent medical/surgical history reviewed Social History: Social History Tobacco Use Smoking status: Never Smoker Smokeless tobacco: Never Used Substance Use Topics Alcohol use: Never Frequency: Never Drug use: Never Social History Substance and Sexual Activity Drug Use Never Family History: History reviewed. No pertinent family history. Vitals: ED Vitals Date and Time T BP P RR SPO2P SPO2 User 01/26/19 1226 -- 96/67 -- 16 PER MINUTE 59 98 % 01/26/19 1020 -- -- -- -- 78 97 % EP 01/26/19 0800 -- 122/90 -- -- -- -- EP 01/26/19 0754 36.5 C (97.7 F) 119/92 -- -- 75 98 % EP Physical Exam: Physical Exam Constitutional: He is oriented to person, place, and time. He appears well-devel oped and well-nourished. No distress. HENT: Head: Normocephalic and atraumatic. Mouth/Throat: Oropharynx is clear and moist and mucous membranes are normal. Eyes: Pupils are equal, round, and reactive to light. Conjunctivae and EOM are n ormal. Neck: Normal range of motion. Neck supple. No tracheal deviation present. Cardiovascular: Normal rate, regular rhythm, normal heart sounds, intact distal pulses and normal pulses. Exam reveals no gallop and no friction rub. No murmur heard. Pulses: Radial pulses are 2+ on the right side, and 2+ on the left side. Dorsalis pedis pulses are 2+ on the right side, and 2+ on the left side. Pulmonary/Chest: Effort normal and breath sounds normal. He has no wheezes. He h as no rales. Abdominal: Soft. He exhibits no distension. There is no tenderness. There is no rebound and no guarding. Musculoskeletal: Normal range of motion. He exhibits no edema. Neurological: He is alert and oriented to person, place, and time. He has normal strength. No cranial nerve deficit or sensory deficit. Coordination normal. Skin: Skin is warm and dry. Capillary refill takes less than 2 seconds. He is no t diaphoretic. Psychiatric: He has a normal mood and affect. Nursing note and vitals reviewed. Laboratory Results: Labs Reviewed CBC AND DIFF Result Value Ref Range Status White Blood Cells 6.0 4.5 - 11.0 K/UL Final RBC 4.63 4.4 - 5.5 M/UL Final Hemoglobin 14.9 13.5 - 16.5 GM/DL Final Hematocrit 44.2 40 - 50 % Final MCV 95.4 80 - 100 FL Final MCH 32.1 26 - 34 PG Final MCHC 33.6 32.0 - 36.0 G/DL Final RDW 12.5 11 - 15 % Final Platelet Count 251 150 - 400 K/UL Final MPV 9.3 7 - 11 FL Final Neutrophils 62 41 - 77 % Final Lymphocytes 25 24 - 44 % Final Monocytes 10 4 - 12 % Final Eosinophils 2 0 - 5 % Final Basophils 1 0 - 2 % Final Absolute Neutrophil Count 3.70 1.8 - 7.0 K/UL Final Absolute Lymph Count 1.50 1.0 - 4.8 K/UL Final Absolute Monocyte Count 0.60 0 - 0.80 K/UL Final Absolute Eosinophil Count 0.10 0 - 0.45 K/UL Final Absolute Basophil Count 0.00 0 - 0.20 K/UL Final COMPREHENSIVE METABOLIC PANEL Sodium 137 137 - 147 MMOL/L Final Potassium 4.0 3.5 - 5.1 MMOL/L Final Chloride 104 98 - 110 MMOL/L Final Glucose 92 70 - 100 MG/DL Final Blood Urea Nitrogen 15 7 - 25 MG/DL Final Creatinine 0.97 0.4 - 1.24 MG/DL Final Calcium 9.8 8.5 - 10.6 MG/DL Final Total Protein 7.0 6.0 - 8.0 G/DL Final Total Bilirubin 0.4 0.3 - 1.2 MG/DL Final Albumin 4.3 3.5 - 5.0 G/DL Final Alk Phosphatase 40 25 - 110 U/L Final AST (SGOT) 10 7 - 40 U/L Final CO2 28 21 - 30 MMOL/L Final ALT (SGPT) 13 7 - 56 U/L Final Anion Gap 5 3 - 12 Final eGFR Non >60 >60 mL/min Final eGFR >60 >60 mL/min Final Radiology Interpretation: CT HEAD WO CONTRAST Final Result Normal CT scan of the head. By my electronic signature, I attest that I have personally reviewed the images for this examination and formulated the interpretations and opinions expressed i n this report Finalized by Óscar Nath M.D. on 01/26/2019 11:36 AM. Dictated by Sher Houser DO on 01/26/2019 10:[address] HEAD EXTERNAL IMAGING Final Result MRI HEAD EXTERNAL IMAGING Final Result EK lead EKG shows regular rate 67 and sinus rhythm. [place] interval, QRS duration, QT interval within normal limits. No ST segment elevations or depressions. Interpretation: Sinus rhythm. ED Course: Patient is a 43 y.o. presenting with the chief complaint of headaches. Patient seen and evaluated by resident and attending. Presenting vitals reviewed and are hemodynamically stable. Physical exam as above. Labwork significant for CBC with Hgb 14.9, WBC 6.0 and otherwise unremarkable . CMP with no significant electrolyte abnormalities, creatinine and LFTs within normal. Imaging significant for CT head unremarkable. Differential includes intracranial mass, hemorrhage, postconcussive syndrome, vasovagal syncope, syncope, electrolyte abnormality, metabolic derangement. Flakito euceda has no acute process CT head. Patient notably has syncope after vomiting and headaches to suggest a component of vasovagal syncope. He describes postcon cussive syndrome headaches following a TBI. Due to persistence and severity of symptoms neurology is consulted. Neurology recommends a cocktail for the patien t's current headache. They recommend patient be discharged on ibuprofen, Compaz ine, Benadryl, and magnesium for headache symptoms. Recommend the patient initi ate amitriptyline to take until his neurology follow-up for postconcussive syndr ome. Recommend she return to the emerge department for any numbness, weakness, uncontrolled pain, or new concerning symptoms patient verbalizes understanding p pedro return precautions. Disposition Home. ED Scoring: MDM Reviewed: previous chart, nursing note and vitals Reviewed previous: CT scan and MRI Interpretation: CT scan, labs and ECG Consults: neurology Facility Administered Meds: Medications magnesium sulfate 1 g/D5W 100 mL IVPB (0 g Intravenous Infusion Stopped 9 1202) ketorolac (TORADOL) injection 15 mg (15 mg Intravenous Given 01/26/19 1101) diphenhydrAMINE (BENADRYL) injection 25 mg (25 mg Intravenous Given 01/26/19 1058 ) prochlorperazine (COMPAZINE) injection 10 mg (10 mg Intravenous Given 01/26/19 11 01) diphenhydrAMINE (BENADRYL) injection 25 mg (25 mg Intravenous Given 01/26/19 1125 ) Clinical Impression: Clinical Impression Post concussive syndrome Other migraine without status migrainosus, not intractable Disposition/Follow up ED Disposition ED Disposition Discharge Girish Varghese, [address] [facility] [address] Schedule an appointment as soon as possible for a visit in 3 days [facility], Neurology [address] [facility] [address] Schedule an appointment as soon as possible for a visit [facility] [address] [facility] [id number] Go to If symptoms worsen Medications: Discharge Medication List as of 01/26/2019 12:51 PM START taking these medications Details amitriptyline (ELAVIL) 10 mg tablet Multiple Dosages:ten mg, Starting Fri 019, Last dose on Fri02/08/2019, AT BEDTIME DAILY, For 14 days, THEN twenty mg, Starting Fri02/09/2019, Last dose on Fri03/08/2019, AT BEDTIME DAILY, For 28 day sOral, Disp-70 tablet, R-0, Print Magnesium 200 mg tab 400 mg, Oral, EVERY 6 HOURS PRN, Starting Fri01/26/2019Wit h headache cocktailDisp-20 tablet, R-0, Print prochlorperazine maleate (COMPAZINE) 10 mg tablet 10 mg, Oral, EVERY 6 HOURS [place] N, Starting Fri01/26/2019, Disp-20 tablet, R-0, Print Procedure Notes: Procedures Attestation / Supervision: Darnell Matta MD Attestation / Supervision Note concerning Nael Molina: I personally performed t he lund portions of the E/M visit, discussed case with resident and concur with r ana pauladent documentation of history, physical exam, assessment, and treatment plan unless otherwise noted. Sher Phelps MD documented in this encounter Plan of Treatment Order Schedule Name Type Priority Associated Diagnoses ONE TIME for 1 Occurrences starting 01/26/2019 until 01/26/2019, 1 completed MRI HEAD EXTERNAL IMAGING Imaging STAT Diagnosis unknown ONE TIME for 1 Occurrences starting 01/26/2019 until 01/26/2019, [address] HEAD EXTERNAL IMAGING Imaging STAT Diagnosis unknown documented as of this encounter Procedures Comments Procedure Name Priority Date/Time Associated Diagnosis CT HEAD WO CONTRAST STAT 01/26/2019 10:53 AM CDT ECG 12-LEAD STAT 01/26/2019 8:56 AM CDT CBC AND DIFF STAT 01/26/2019 8:55 AM CDT COMPREHENSIVE METABOLIC STAT 01/26/2019 PANEL 8:55 AM CDT ECG-SCAN 01/26/2019 12:00 AM CDT ECG-SCAN 01/26/2019 12:00 AM CDT MRI HEAD EXTERNAL IMAGING STAT 12/24/2018 Diagnosis unknown 12:[address] HEAD EXTERNAL IMAGING STAT 09/29/2018 Diagnosis unknown 12:00 AM ANALYTICS DIRECTOR documented in this encounter Results * CT HEAD WO CONTRAST (01/26/2019 10:53 AM CDT) Specimen Impressions Performed At Normal CT scan of the head. [facility] RAD RESULTS By my electronic signature, I attest that I have personally reviewed the images for this examination and formulated the interpretations and opinions expressed in this report Finalized by Óscar Nath M.D. on 01/26/2019 11:36 AM. Dictated by Sher Houser DO on 01/26/2019 10:55 AM. Narrative Performed At EXAM: CT HEAD [facility] RAD RESULTS HISTORY: Syncope. TECHNIQUE: Multiple contiguous axial images were obtained of the brain without intravenous contrast. COMPARISON: External brain MRI dated December 24, 2018. External CT head dated September 29, 2018. FINDINGS: Dr. Óscar Nath M.D. has personally reviewed these images and formulated the interpretations and opinions expressed in this report. The ventricles and subarachnoid spaces are normal in size and configuration.There is no midline shift or mass effect. The shah white matter interfaces are maintained. The basal cisterns are patent. There is no evidence of acute intracranial hemorrhage or extra-axial fluid collection. The mastoid air cells and visualized paranasal sinuses are well-aerated. Procedure Note Interface, Radiant Results - 01/26/2019 11:39 AM CDT EXAM: CT HEAD HISTORY: Syncope. TECHNIQUE: Multiple contiguous axial images were obtained of the brain without intravenous contrast. COMPARISON: External brain MRI dated December 24, 2018. External CT head dated September 29, 2018. FINDINGS: Dr. Óscar Nath M.D. has personally reviewed these images and formulated the interpretations and opinions expressed in this report. The ventricles and subarachnoid spaces are normal in size and configuration. There is no midline shift or mass effect. The shah white matter interfaces are maintained. The basal cisterns are patent. There is no evidence of acute intracranial hemorrhage or extra-axial fluid collection. The mastoid air cells and visualized paranasal sinuses are well-aerated. IMPRESSION Normal CT scan of the head. By my electronic signature, I attest that I have personally reviewed the images for this examination and formulated the interpretations and opinions expressed in this report Finalized by Óscar Nath M.D. on 01/26/2019 11:36 AM. Dictated by Sher Houser DO on 01/26/2019 10:55 AM. Performing Organization Address City/State/Zipcode Phone Number [facility] RES[facility] * COMPREHENSIVE METABOLIC PANEL (01/26/2019 8:55 AM CDT) Sodium 137 137 - 147 MMOL/L [facility] Potassium 4.0 3.5 - 5.1 MMOL/L [facility] Chloride 104 98 - 110 MMOL/L [facility] Glucose 92 70 - 100 MG/DL [facility] Blood Urea 15 7 - 25 MG/DL [facility] Nitrogen Creatinine 0.97 0.4 - 1.24 MG/DL [facility] Calcium 9.8 8.5 - 10.6 MG/DL [facility] Total Protein 7.0 6.0 - 8.0 G/DL [facility] Total Bilirubin 0.4 0.3 - 1.2 MG/DL [facility] Albumin 4.3 3.5 - 5.0 G/DL [facility] Alk Phosphatase 40 25 - 110 U/L [facility] AST (SGOT) 10 7 - 40 U/L [facility] CO2 28 21 - 30 MMOL/L [facility] ALT (SGPT) 13 7 - 56 U/L [facility] Anion Gap 5 3 - 12 [facility] eGFR Non >60 >60 mL/min [facility] Comment: [place] The eGFR is not validated for use in drug dosing adjustments.Continue to use estimated creatinine clearance per dosing reference text.Please contact the Clinical Pharmacist for questions. eGFR >60 >60 mL/min [facility] [place] Comment: The eGFR is not validated for use in drug dosing adjustments.Continue to use estimated creatinine clearance per dosing reference text.Please contact the Clinical Pharmacist for questions. Specimen Blood Performing Organization Address City/State/Zipcode Phone Number [facility] [address] [place] [address] * CBC AND DIFF (01/26/2019 8:55 AM CDT) White Blood 6.0 4.5 - 11.0 K/UL [facility] Cells RBC 4.63 4.4 - 5.5 M/UL [facility] Hemoglobin 14.9 13.5 - 16.5 GM/DL [facility] Hematocrit 44.2 40 - 50 % [facility] MCV 95.4 80 - 100 FL [facility] MCH 32.1 26 - 34 PG [facility] MCHC 33.6 32.0 - 36.0 G/DL [facility] RDW 12.5 11 - 15 % [facility] Platelet Count 251 150 - 400 K/UL [facility] MPV 9.3 7 - 11 FL [facility] Neutrophils 62 41 - 77 % [facility] Lymphocytes 25 24 - 44 % [facility] Monocytes 10 4 - 12 % [facility] Eosinophils 2 0 - 5 % [facility] Basophils 1 0 - 2 % [facility] Absolute 3.70 1.8 - 7.0 K/UL [facility] Neutrophil Count Absolute Lymph 1.50 1.0 - 4.8 K/UL [facility] Count Absolute 0.60 0 - 0.80 K/UL [facility] Monocyte Count Absolute 0.10 0 - 0.45 K/UL [facility] Eosinophil Count Absolute 0.00 0 - 0.20 K/UL [facility] Basophil Count Specimen Blood Performing Organization Address City/State/Zipcode Phone Number [facility] [address] [place] [address] * ECG-SCAN (01/26/2019 12:00 AM CDT) Narrative Performed At Ordered by an unspecified provider. * ECG-SCAN (01/26/2019 12:00 AM CDT) Narrative Performed At Ordered by an unspecified provider. * MRI HEAD EXTERNAL IMAGING (12/24/2018 12:00 AM CDT) Specimen Narrative Performed At This order has been auto finalized and does not contain a result. * CT HEAD EXTERNAL IMAGING (09/29/2018 12:00 AM ANALYTICS DIRECTOR) Specimen Narrative Performed At This order has been auto finalized and does not contain a result. documented in this encounter Visit Diagnoses Diagnosis Post concussive syndrome - Primary Postconcussion syndrome Diagnosis unknown Other unknown and unspecified cause of morbidity or mortality Other migraine without status migrainosus, not intractable Intractable chronic post-traumatic headache Chronic post-traumatic headache Syncope, unspecified syncope type documented in this encounter Administered Medications Action Date Dose Rate Site Medication Order MAR Action 01/26/2019 10:58 AM CDT 25 mg diphenhydrAMINE (BENADRYL) injection 25 Given mg 25 mg, Intravenous, ONCE, 1 dose, Fri01/26/19 at 1045 01/26/2019 11:25 AM CDT 25 mg diphenhydrAMINE (BENADRYL) injection 25 Given mg 25 mg, Intravenous, ONCE, 1 dose, Fri01/26/19 at 1130 DIPHENHYDRAMINE HCL 50 MG/ML IJ SOLN (Cabinet Override) NOW, 1 dose, Fri01/26/19 at 1130, Created by cabinet override, Created by cabinet override, 01/26/2019 11:01 AM CDT 15 mg ketorolac (TORADOL) injection 15 mg Given 15 mg, Intravenous, ONCE, 1 dose, 01/26/19 at 1045, Please note: this medication will be automatically discontinued 5 days after ordered per hospital policy. Please obtain a new order if the medication needs to be continued., 01/26/2019 11:02 AM CDT 1 g 100 mL/hr magnesium sulfate 1 g/D5W 100 mL IVPB Given - New 1 g, Intravenous, 100 mL, Administer Bag over 1 Hours, ONCE, 1 dose, e 01/26/19 at 1045, Each 1gm delivers 8.1 mEq Magnesium., 01/26/2019 11:01 AM CDT 10 mg prochlorperazine (COMPAZINE) injection Given 10 mg 10 mg, Intravenous, ONCE, 1 dose, e 01/26/19 at 1045, PROTECT FROM LIGHT -- May be given undiluted, or each 5mg may be diluted with 9 mL of NS to facilitate titration., documented in this encounter
--- OUTSIDE RECORDS SUMMARY | 2019-03-03 13:29 | XMS REPORT | Encounter Summary ---
Author Author [facility] Organization [facility] Address Unknown Phone Unavailable Care Team Providers Care Fiber Optic Splicer Name Role Phone PCP Unavailable Encounter Details Care Team Description Date Type Department 12/24/2018 Hospital [facility] En[facility] [address] [address] Social History Date Tobacco Use Types Packs/Day Years Used Never Assessed Sex Assigned at Date Recorded Not on file Industry Job Start Date Occupation Not on file Not on file Not on file Travel End Travel History Travel Start No recent travel history available. documented as of this encounter Plan of Treatment Not on filedocumented as of this encounter Procedures Comments Procedure Name Priority Date/Time Associated Diagnosis MRI HEAD EXTERNAL IMAGING STAT 12/24/2018 Diagnosis unknown 12:00 AM CDT documented in this encounter Results * MRI HEAD EXTERNAL IMAGING (12/24/2018 12:00 AM CDT) Specimen Narrative Performed At This order has been auto finalized and does not contain a result. documented in this encounter Visit Diagnoses Not on filedocumented in this encounter
--- OUTSIDE RECORDS SUMMARY | 2019-03-03 13:29 | XMS REPORT | Clinical Summary ---
Author Author [facility] Organization [facility] Address Unknown Phone Unavailable Care Team Providers Care Alumina Refinery Operator Name Role Phone Girish Varghese PCP Source Comments Some departments are not documenting in the electronic medical record. If you d o not see the information that you expected, contact Release of Information in [facility] Information Management department at [phone] for further assistan ce in locating additional records.[facility] Allergies No Known Allergies Medications End Date Status Medication Sig Dispensed Refills Start Date Active prochlorperazine maleate Take one 20 tablet 0 /14/201 (COMPAZINE) 10 mg tablet tablet by 9 mouth every 6 hours as needed (Headache). Active Magnesium 200 mg tab Take two 20 tablet 0 05/14/201 tablets by 9 mouth every 6 hours as needed. With headache cocktail 03/09/2019 Active amitriptyline (ELAVIL) 10 Take one 70 tablet 0 05/14/201 mg tablet tablet by 9 mouth at bedtime daily for 14 days, THEN two tablets at bedtime daily for 28 days. Active Problems Not on file Encounters Care Team Description Date Type Specialty Sher Phelps MD 01/26/2019 Emergency Emergency Medicine Claudia Balderrama Referral 01/20/2019 Telephone Neurology 12/24/2018 Hospital Radiology Encounter from Last 3 Months Social History Date Tobacco Use Types Packs/Day [...] Travel Start No recent travel history available. Last Filed Vital Signs Reading Time Taken Comments Vital Sign 96/67 01/26/2019 12:26 PM CDT Blood Pressure - - Pulse 36.5 C (97.7 F) 01/26/2019 7:54 AM CDT Temperature - - Respiratory Rate 98% 01/26/2019 12:26 PM CDT Oxygen Saturation - - Inhaled Oxygen Concentration 70.8 kg (156 lb) 01/26/2019 7:54 AM CDT Weight - - Height - - Body Mass Index Plan of Treatment Health Maintenance Due Date Last Done Comments PHYSICAL (COMPREHENSIVE) 1984 EXAM HIV SCREENING 1992 DTAP/TDAP VACCINES (1 - 1995 Tdap) INFLUENZA VACCINE 06/15/2019 Procedures Comments Procedure Name Priority Date/Time Associated Diagnosis CT HEAD WO CONTRAST STAT 01/26/2019 10:53 AM CDT ECG 12-LEAD STAT 01/26/2019 8:56 AM CDT COMPREHENSIVE METABOLIC STAT 01/26/2019 PANEL 8:55 AM CDT CBC AND DIFF STAT 01/26/2019 8:55 AM CDT ECG-SCAN 01/26/2019 12:00 AM CDT ECG-SCAN 01/26/2019 12:00 AM CDT MRI HEAD EXTERNAL IMAGING STAT 12/24/2018 Diagnosis unknown 12:00 AM CDT from Last 3 Months Results * CT HEAD WO CONTRAST (01/26/2019 [...] City/State/Zipcode Phone Number [facility] RES[facility] * CBC AND DIFF (01/26/2019 8:55 AM [...] Blood Performing Organization Address City/State/Zipcode Phone Number [facility] [address] [place] [address] * COMPREHENSIVE METABOLIC PANEL (01/26/2019 8:55 AM [...] >60 >60 mL/min [facility] Comment: [place] The eGFR is not validated for use in drug dosing adjustments.Continue to use estimated creatinine clearance per dosing reference text.Please contact the Clinical Pharmacist for questions. eGFR >60 >60 mL/min [facility] [place] Comment: The eGFR is not validated for use in drug dosing adjustments.Continue to use estimated creatinine clearance per dosing reference text.Please contact the Clinical Pharmacist for questions. Specimen Blood Performing Organization Address City/State/Zipcode Phone Number [facility] [address] [place] [address] * ECG-SCAN (01/26/2019 12:00 AM CDT) Narrative Performed At Ordered by an unspecified provider. * ECG-SCAN (01/26/2019 12:00 AM CDT) Narrative Performed At Ordered by an unspecified provider. * MRI HEAD EXTERNAL IMAGING (12/24/2018 12:00 AM CDT) Specimen Narrative Performed At This order has been auto finalized and does not contain a result. from Last 3 Months Insurance Type Payer Benefit Subscriber ID Effective Phone Address Plan / Dates Group Indemnity [facility] xxxxxxxxx [id number] CHOICE/CHO resent ICE PLUS Advance Directives Patient Enamel Pulverizer Explanation Type Date Recorded Advance 01/26/2019 7:50 AM Directive/DPOA
--- OUTSIDE RECORDS SUMMARY | 2019-03-03 13:29 | XMS REPORT | Encounter Summary ---
Author Author [facility] Organization [facility] Address Unknown Phone Unavailable Care Team Providers Care Slab Grinder Name Role Phone PCP Unavailable Reason for Visit * Reason Comments Referral Encounter Details Care Team Description Date Type Department Claudia Balderrama Referral 01/20/2019 Telephone [facility] [id number] [place] [address] Social History Date Tobacco Use Types Packs/Day Years Used Never Assessed Sex Assigned at Date Recorded Not on file Industry Job Start Date Occupation Not on file Not on file Not on file Travel End Travel History Travel Start No recent travel history available. documented as of this encounter Plan of Treatment Not on filedocumented as of this encounter Visit Diagnoses Not on filedocumented in this encounter
--- OUTSIDE RECORDS SUMMARY | 2019-03-03 13:29 | XMS REPORT | Encounter Summary ---
Author Author [facility] Organization [facility] Address Unknown Phone Unavailable Care Team Providers Care Search Marketing Analyst Name Role Phone PCP Unavailable Encounter Details Care Team Description Date Type Department 09/29/2018 Hospital [facility] Encounter Health [facility] [address] [address] Social History Date Tobacco Use Types Packs/Day [...] Name Priority Date/Time Associated Diagnosis CT HEAD EXTERNAL IMAGING STAT 09/29/2018 Diagnosis unknown 12:00 AM EMERGENCY ROOM PHYSICIAN documented in this encounter Results * CT HEAD EXTERNAL IMAGING (09/29/2018 12:00 AM EMERGENCY ROOM PHYSICIAN) Specimen Narrative Performed At This order has been auto finalized and does not contain a result. documented in this encounter Visit Diagnoses Not on filedocumented in this encounter
--- OUTSIDE RECORDS SUMMARY | 2019-03-03 13:30 | XMS REPORT | Continuity of Care Document ---
Author Organization Unknown Address Unknown Allergies Active Description Code Type Severity Reaction Onset Reported/Identified Relationship to Patient Clinical Status Yes No Known Drug Allergies [id number] Drug Allergy Mild N/A 05/12/2009 Medications There is no data. Problems Date Dx Coded Attending Type Code Diagnosis Diagnosed By 11/25/2011 Ot 487.1 FLU W RESP MANIFEST NEC 11/25/2011 Ot 780.60 FEVER, UNSPECIFIED 11/25/2011 Ot 786.2 COUGH 11/25/2011 Ot 787.03 VOMITING ALONE 03/05/2017 MK MILESALVINO Ot S79.911A UNSPECIFIED INJURY OF RIGHT HIP, INITIAL 03/05/2017 MK MILESALVINO Ot W17.89XA OTHER FALL FROM ONE LEVEL TO ANOTHER, IN 07/08/2017 MK MILESALVINO Ot S29.9XXA UNSPECIFIED INJURY OF THORAX, INITIAL EN 07/08/2017 MK MILESALVINO Ot S39.92XA UNSPECIFIED INJURY OF LOWER BACK, INITIA 07/08/2017 MK MILES ALVINO Shoemaker Ot W55.89XA OTHER CONTACT WITH OTHER MAMMALS, INITIA 07/08/2017 MK MILESALVINO Ot Y99.8 OTHER EXTERNAL CAUSE STATUS 07/16/2017 MK MILESALVINO Ot S29.9XXA UNSPECIFIED INJURY OF THORAX, INITIAL EN 07/16/2017 MK MILESALVINO Ot S39.92XA UNSPECIFIED INJURY OF LOWER BACK, INITIA 07/16/2017 MK MILESALVINO Ot W55.89XA OTHER CONTACT WITH OTHER MAMMALS, INITIA 07/16/2017 MK MILESALVINO Ot Y99.8 OTHER EXTERNAL CAUSE STATUS 09/29/2018 EZEQUIEL MEDRANO, FILI Harmon Ot S01.01XA LACERATION WITHOUT FOREIGN BODY OF SCALP 09/29/2018 EZEQUIEL MEDRANO, FILI Harmon Ot S06.0X0A CONCUSSION WITHOUT LOSS OF CONSCIOUSNESS 09/29/2018 FILI NIEVES MD Ot W22.09XA STRIKING AGAINST OTHER STATIONARY OBJECT 09/29/2018 FILI NIEVES MD Ot Y92.[address] 09/29/2018 FILI NIEVES MD Ot Y99.0 CIVILIAN ACTIVITY DONE FOR INCOME OR PAY 09/29/2018 FILI NIEVES MD Ot Z23 ENCOUNTER FOR IMMUNIZATION 09/29/2018 FILI NIEVES MD Ot Z87.19 PERSONAL HISTORY OF OTHER DISEASES OF TH 09/29/2018 FILI NIEVES MD Ot Z98.890 OTHER SPECIFIED POSTPROCEDURAL STATES 12/18/2018 [facility] ALVINO Shoemaker Ot S79.911A UNSPECIFIED INJURY OF RIGHT HIP, INITIAL 12/18/2018 [facility], ALVINO Shoemaker Ot W17.89XA OTHER FALL FROM ONE LEVEL TO ANOTHER, IN 12/18/2018 [facility], ALVINO Shoemaker Ot S29.9XXA UNSPECIFIED INJURY OF THORAX, INITIAL EN 12/18/2018 [facility], ALVINO Shoemaker Ot S39.92XA UNSPECIFIED INJURY OF LOWER BACK, INITIA 12/18/2018 [facility], ALVINO Shoemaker Ot W55.89XA OTHER CONTACT WITH OTHER MAMMALS, INITIA 12/18/2018 [facility], ALVINO Shoemaker Ot Y99.8 OTHER EXTERNAL CAUSE STATUS 12/22/2018 [facility], ALIVNO Shoemaker Ot S79.911A UNSPECIFIED INJURY OF RIGHT HIP, INITIAL 12/22/2018 [facility] ALVINO Ot W17.89XA OTHER FALL FROM ONE LEVEL TO ANOTHER, IN 12/22/2018 [facility], ALVINO Shoemaker Ot S29.9XXA UNSPECIFIED INJURY OF THORAX, INITIAL EN 12/22/2018 [facility], ALVINO Shoemaker Ot S39.92XA UNSPECIFIED INJURY OF LOWER BACK, INITIA 12/22/2018 [facility] , ALVINO Shoemaker Ot W55.89XA OTHER CONTACT WITH OTHER MAMMALS, INITIA 12/22/2018 [facility], ALVINO Shoemaker Ot Y99.8 OTHER EXTERNAL CAUSE STATUS 12/25/2018 [facility], ALVINO Shoemaker Ot J34.89 OTHER SPECIFIED DISORDERS OF NOSE AND NA 12/25/2018 [facility] Ot R51 HEADACHE 12/25/2018 [facility], ALVINO Shoemaker Ot S06.0X9A CONCUSSION W LOSS OF CONSCIOUSNESS OF UN 01/19/2019 [facility], ALVINO Shoemaker Ot S79.911A UNSPECIFIED INJURY OF RIGHT HIP, INITIAL 01/19/2019 [facility] DO, ALVINO Shoemaker Ot W17.89XA OTHER FALL FROM ONE LEVEL TO ANOTHER, IN 01/19/2019 [facility] DO, ALVINO Shoemaker Ot S29.9XXA UNSPECIFIED INJURY OF THORAX, INITIAL EN 01/19/2019 [facility]ENDER DO, ALVINO Shoemaker Ot S39.92XA UNSPECIFIED INJURY OF LOWER BACK, INITIA 01/19/2019 [facility] DO, ALVINO Shoemaker Ot W55.89XA OTHER CONTACT WITH OTHER MAMMALS, INITIA 01/19/2019 [facility] DO, ALVINO Shoemaker Ot Y99.8 OTHER EXTERNAL CAUSE STATUS 01/19/2019 [facility] DO, ALVINO Shoemaker Ot J34.89 OTHER SPECIFIED DISORDERS OF NOSE AND NA 01/19/2019 [facility] DO, ALVINO Shoemaker Ot R51 HEADACHE 01/19/2019 [facility]ENDER DO, ALVINO Shoemaker Ot S06.0X9A CONCUSSION W LOSS OF CONSCIOUSNESS OF UN 01/20/2019 [facility]ENDER DO, ALVINO Shoemaker Ot J34.89 OTHER SPECIFIED DISORDERS OF NOSE AND NA 01/20/2019 GELLENDER DO, ALVINO Shoemaker Ot R51 HEADACHE 01/20/2019 GE[facility]ENDER DO, ALVINO Shoemaker Ot S06.0X9A CONCUSSION W LOSS OF CONSCIOUSNESS OF UN 01/22/2019 JOJO DOHAMILTON Ot F41.9 ANXIETY DISORDER, UNSPECIFIED 01/22/2019 JOJO DOHAMILTON Ot R51 HEADACHE 01/22/2019 JOJO DOHAMILTON Ot S06.0X9A CONCUSSION W LOSS OF CONSCIOUSNESS OF UN 01/22/2019 JOJO DOHAMILTON Ot X58.XXXA EXPOSURE TO OTHER SPECIFIED FACTORS, INI 01/22/2019 HAMILTON URIBE DO Ot Z86.69 PERSONAL HISTORY OF DIS OF THE NERVOUS S 01/22/2019 JOJO DOHAMILTON Ot Z91.14 PATIENT'S OTHER NONCOMPLIANCE WITH MEDIC 01/22/2019 JOJO HAMILTON MILES Ot Z98.890 OTHER SPECIFIED POSTPROCEDURAL STATES 01/25/2019 HAMILTON URIBE DO Ot F41.9 ANXIETY DISORDER, UNSPECIFIED 01/25/2019 HAMILTON URIBE DO Ot R51 HEADACHE 01/25/2019 HAMILTON URIBE DO Ot Z86.69 PERSONAL HISTORY OF DIS OF THE NERVOUS S 01/25/2019 HAMILTON URIBE DO Ot Z87.820 PERSONAL HISTORY OF TRAUMATIC BRAIN INJU 01/25/2019 HAMILTON URIBE DO Ot Z91.14 PATIENT'S OTHER NONCOMPLIANCE WITH MEDIC 01/25/2019 HAMILTON URIBE DO Ot Z98.890 OTHER SPECIFIED POSTPROCEDURAL STATES Procedures There is no data. Results Test Result Range Complete blood count (CBC) with automated white blood cell (WBC) differential - 01/19/19 20:35 Blood leukocytes automated count (number/volume) 7.8 10*3/uL 4.3-11.0 Blood erythrocytes automated count (number/volume) 4.75 10*6/uL 4.35-5.85 Venous blood hemoglobin measurement (mass/volume) 15.0 g/dL 13.3-17.7 Blood hematocrit (volume fraction) 44 % 40-54 Automated erythrocyte mean corpuscular volume 92 [foz_us] 80-99 Automated erythrocyte mean corpuscular hemoglobin (mass per erythrocyte) 32 pg 25-34 Automated erythrocyte mean corpuscular hemoglobin concentration measurement (mass/volume) 35 g/dL 32-36 Automated erythrocyte distribution width ratio 12.5 % 10.0- 14.5 Automated blood platelet count (count/volume) 275 10*3/uL 130-400 Automated blood platelet mean volume measurement 11.6 [foz_us] 7.4-10.4 Automated blood neutrophils/100 leukocytes 66 % 42-75 Automated blood lymphocytes/100 leukocytes 25 % 12-44 Blood monocytes/100 leukocytes 7 % 0-12 Automated blood eosinophils/100 leukocytes 2 % 0-10 Automated blood basophils/100 leukocytes 1 % 0-10 Blood neutrophils automated count (number/volume) 5.1 10*3 1.8-7.8 Blood lymphocytes automated count (number/volume) 2.0 10*3 1.0-4.0 Blood monocytes automated count (number/volume) 0.5 10*3 0.0- 1.0 Automated eosinophil count 0.1 10*3/uL 0.0-0.3 Automated blood basophil count (count/volume) 0.1 10*3/uL 0.0-0.1 Comprehensive metabolic panel - 01/19/19 20:35 Serum or plasma sodium measurement (moles/volume) 143 mmol/L 135-145 Serum or plasma potassium measurement (moles/volume) 3.8 mmol/L 3.6-5.0 Serum or plasma chloride measurement (moles/volume) 107 mmol/L 98-107 Carbon dioxide 24 mmol/L 21-32 Serum or plasma anion gap determination (moles/volume) 12 mmol/L 5-14 Serum or plasma urea nitrogen measurement (mass/volume) 18 mg/dL 7-18 Serum or plasma creatinine measurement (mass/volume) 1.19 mg/dL 0.60-1.30 Serum or plasma urea nitrogen/creatinine mass ratio 15 NRG Serum or plasma creatinine measurement with calculation of estimated glomerular filtration rate > NRG Serum or plasma glucose measurement (mass/volume) 101 mg/dL 70-105 Serum or plasma calcium measurement (mass/volume) 10.6 mg/dL 8.5-10.1 Serum or plasma total bilirubin measurement (mass/volume) 0.5 mg/dL 0.1-1.0 Serum or plasma alkaline phosphatase measurement (enzymatic activity/volume) 44 U/L 40-136 Serum or plasma aspartate aminotransferase measurement (enzymatic activity/volume) 15 U/L 5-34 Serum or plasma alanine aminotransferase measurement (enzymatic activity/volume) 20 U/L 0-55 Serum or plasma protein measurement (mass/volume) 7.4 g/dL 6.4-8.2 Serum or plasma albumin measurement (mass/volume) 4.5 g/dL 3.2-4.5 CALCIUM CORRECTED 10.2 mg/dL 8.5-10.1 Magnesium - 01/19/19 20:35 Magnesium 2.6 mg/dL 1.8-2.4 Encounters ACCT No. Visit Date/Time Discharge Status Pt. Type Provider Facility Loc./Unit Complaint [id number] 01/19/2019 19:55:00 01/19/2019 22:39:00 DIS Outpatient HAMILTON URIBE DO [facility] ER HEADACHE [id number] 12/24/2018 07:39:00 12/24/2018 23:59:59 CLS Outpatient ALVINO TERRAZAS DO [facility] RAD HEADACHES,POST CONCUSSION [id number] 09/29/2018 04:37:00 09/29/2018 06:43:00 DIS Emergency EZEQUIEL MEDRANO, FILI Harmon [facility] ER HEAD BUMP LACERATION-WC [id number] 07/04/2017 10:08:00 07/04/2017 23:59:59 [facility] Outpatient ALVINO TERRAZAS DO [facility] RAD TRAUMA-HIT BY BULL [id number] 02/19/2017 15:56:00 02/19/2017 23:59:59 [facility] Outpatient ALVINO TERRAZAS DO [facility] RAD PAIN IN RT HIP [id number] 11/25/2011 14:19:00 Document Registration
== END 2019-03-03 12:50 | disposition home or self-care (01) ==
LOC: EDUNIT# 10:00 → ER 10:01
DX: G43.909 Migraine, unspecified, not intractable, without status migrainosus (principal); F41.9 Anxiety disorder, unspecified; Z98.890 Other specified postprocedural states; Z87.820 Personal history of traumatic brain injury; Z87.19 Personal history of other diseases of the digestive system
CPT/HCPCS: 96361; 96374; 96375; 96376

== ENCOUNTER 2019-10-27 21:49 | Emergency (ER) | payer OTHER ==
[~2019-10-27] VITALS: Ht 183 cm; Wt 71.0 kg
[2019-10-27] MEDS ORDERED: ONDANSETRON 4 MG/2 ML (SDV) Z0FRAN IVP ONE (22:00)
[2019-10-27] MEDS ORDERED: fentaNYL INJECTION 100 MCG/2 ML AMP IVP STA ×2 (22:00→23:44)
--- NOTE | 2019-10-27 22:20 | ED Head Injury ---
General Chief Complaint: Trauma-Non Activation Stated Complaint: AMS Nursing Triage Note: fall from standing position right sided head pain. Source: patient Exam Limitations: no limitations History of Present Illness Date Seen by Provider: Oct 27, 2019 Time Seen by Provider: 21:53 Initial Comments Here by EMS with report of fall from standing height onto concrete garage floor. This was unwitnessed. Found by his . Unsure of loss of consciousness. Patient was shaking and complaining of severe right-sided head pain. 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 Does have abrasion and contusion to the right side of the forehead at the hairline. Denies other injury or pain. Does have mild nausea. Denies fever but does have chills or shaking but this may be related to the pain. Location Injury Occurred: home Occurred: just prior to arrival (approximately 45 minutes ago) Severity: moderate Location: frontal Method of Injury: direct blow Loss of Consciousness: unsure Associated Systoms: No Chest Pain, No Cough, No Fever/Chills; Headaches (right- sided severe, aching and pounding.), Nausea/Vomiting; No Shortness of Air, No Weakness Allergies and Home Medications Allergies Coded Allergies: promethazine (Verified Allergy, Unknown, Itching, 10/27/19) Home Medications No Active Prescriptions or Reported Meds Patient Home Medication List Home Medication List Reviewed: Yes Review of Systems Review of Systems Constitutional: see HPI; No chills, No fever Eyes: No Symptoms Reported Ears, Nose, Mouth, Throat: no symptoms reported Respiratory: no symptoms reported Cardiovascular: no symptoms reported Gastrointestinal: nausea; No vomiting Genitourinary: no symptoms reported Musculoskeletal: no symptoms reported All Other Systems Reviewed Negative Unless Noted: Yes Past Fepvlkr-Liejnx-Lostyd Hx Past Med/Social Hx: Reviewed Nursing Past Med/Soc Hx Patient Social History Alcohol Use: Denies Use Recreational Drug Use: No Smoking Status: Never a Smoker Recent Foreign Travel: No Contact w/Someone Who Travel: No Recent Infectious Disease Expo: No Recent Hopitalizations: No Physical Abuse: No Sexual Abuse: No Mistreated: No Fear: No Immunizations Up To Date Tetanus Booster (TDap): Unknown Seasonal Allergies Seasonal Allergies: No Past Medical History Surgeries: Yes (HERNIA REPAIR) Abdominal Respiratory: No Cardiac: No Neurological: Yes (tbi) Concussion Genitourinary: No Gastrointestinal: Yes Abdominal Hernia Musculoskeletal: No Endocrine: No HEENT: No Cancer: No Psychosocial: Yes Anxiety Integumentary: No Blood Disorders: No Family Medical History Reviewed Nursing Family Hx Physical Exam Vital Signs Vital Signs - First Documented 10/27/19 21:50 Temp 36.8 Pulse 94 Resp 22 B/P (MAP) 141/86 (104) Pulse Ox 99 O2 Delivery Room Air Capillary Refill : Less Than 3 Seconds Height, Weight, BMI Height: 6'1.00" Weight: 155lbs. 0oz. 70.637900ls; 21.00 BMI Method:Stated General Appearance: WD/WN, no apparent distress HEENT: PERRL/EOMI, pharynx normal Neck: non-tender, full range of motion, supple, normal inspection Cardiovascular: regular rate, rhythm, no murmur Respiratory: lungs clear, normal breath sounds Gastrointestinal: non tender, soft Back: normal inspection, no CVA tenderness, no vertebral tenderness Extremities: non-tender Psychiatric: alert, oriented x 3 Crainal Nerves: PERRL, other (slowed speech due to pain) Motor/Sensory: no motor deficit, no sensory deficit Skin: normal color, warm/dry Henna Coma Score Best Eye Response: (4) Open Spontaneously Best Verbal Response: (5) Oriented Best Motor Response: (6) Obeys Commands Progress/Results/Core Measures Results/Orders My Orders Orders - LAINA CLARK MD Ct Head/Cervical Spine Wo (10/27/19 22:00) Fentanyl Injection (Sublimaze Injection (10/27/19 22:00) Ondansetron Injection (Zofran Injectio (10/27/19 22:00) Fentanyl Injection (Sublimaze Injection (10/27/19 23:44) Ketorolac Injection (Toradol Injection) (10/27/19 23:44) Dexamethasone Injection (Decadron Inject (10/27/19 23:45) Medications Given in ED Current Medications Medications Dose Ordered Sig/Myesha Route Start Time Stop Time Status Last Admin Dose Admin Dexamethasone Sodium Phosphate 10 mg ONCE ONCE IV 10/27/19 23:45 10/27/19 23:46 DC 10/27/19 23:55 10 MG Ondansetron HCl 4 mg ONCE ONCE IVP 10/27/19 22:00 10/27/19 22:02 DC 10/27/19 22:09 4 MG Vital Signs/I&O 10/27/19 21:50 Temp 36.8 Pulse 94 Resp 22 B/P (MAP) 141/86 (104) Pulse Ox 99 O2 Delivery Room Air Blood Pressure Mean: 104 Progress Progress Note : Progress Note Seen and evaluated. CT head and C-spine ordered. We will go ahead and give fentanyl 50 g IV and Zofran [address] is complete. We can add Toradol at that time if appropriate. Monitor patient. 2344: CT complete. Toradol 30 mg IV, fentanyl 50 g IV and Decadron 10 mg IV ordered for persistent headache although it is a little better now. He has been suffering from migraines over the last 2 days per the . No recent illness otherwise. Monitor patient. 0050: Improved. CT is negative. Family at bedside is comfortable taking him home. Discharged home with return precautions. Family verbalize understanding instructions and agreement with plan. Diagnostic Imaging Diagonstic Imaging: CT Plain Films/CT/US/NM/MRI: head Comments Negative head CT. Mild cervical spondylosis most significant at C6/C7. No cervical fracture. Reviewed: Reviewed [facility] Study, Reviewed by Me Departure Impression Primary Impression: Concussion Qualified Codes: S06.0X1A - Concussion with loss of consciousness of 30 minutes or less, initial encounter Additional Impressions: Minor head injury Qualified Codes: S09.90XA - Unspecified injury of head, initial encounter Migraine headache Qualified Codes: G43.909 - Migraine, unspecified, not intractable, without status migrainosus Disposition: 01 HOME, SELF-CARE Condition: Stable Departure-Patient Inst. Decision time for Depature: 00:53 Referrals: ALVINO TERRAZAS DO (PCP/Family) Primary Care Physician Patient Instructions: Concussion in Adults, Closed Head Injury (DC), Migraine Headaches in Adults Add. Discharge Instructions: All discharge instructions reviewed with patient and/or family. Voiced understanding. Continue home medications as previously prescribed. Follow-up with your doctor in your neurologist for recheck and further evaluation. Return for worse pain, weakness, breathing problems, vision or balance problems or other concerns as needed. Scripts No Active Prescriptions or Reported Meds LAINA CLARK MD Oct 27, 2019 22:20
[2019-10-27] MEDS ORDERED: KETOROLAC 30 MG/ML VIAL IVP STA (23:44)
[2019-10-27] MEDS ORDERED: DEXAMETHASONE 10 MG/ML (DECADRON) 1 ML VIAL IV ONE (23:45)
[2019-10-28 00:57] VITALS: BP 123/76
--- NOTE | 2019-10-28 06:37 | Diagnostic Imaging Report ---
PROCEDURE: CT head and CT cervical spine without contrast. TECHNIQUE: Multiple contiguous axial images were obtained through the brain and cervical spine without the use of intravenous contrast. Sagittal and coronal reformations through the cervical spine were then performed. Auto Exposure Controls were utilized during the CT exam to meet ALARA standards for radiation dose reduction. INDICATION: Patient fell tonight and hit head on concrete. Patient has a previous traumatic brain injury. COMPARISON STUDY: CT scan of the head from 09/29/2018. FINDINGS: Noncontrast CT scan of the head demonstrates no mass effect, midline shift, hemorrhage or extra-axial fluid collections. No fractures are present. The paranasal sinuses and mastoid air cells are clear. Cervical spine: Noncontrast CT scan of the cervical spine with sagittal and coronal reformats demonstrates no fracture or subluxation. Lung apices are clear. The soft tissues appear normal. C6/C7 level demonstrates disc space narrowing with osteophytic ridging. Mild central and foraminal stenosis present. Mild disc space narrowing is also present at C4-C5 without stenosis. IMPRESSION: There are no acute findings. Findings agree with [facility] report. Dictated by: Dictated on workstation # [id number]
== END 2019-10-28 00:57 | disposition home or self-care (01) ==
LOC: EDUNIT# 21:49 → ER 21:50
DX: S06.0X0A Concussion without loss of consciousness, initial encounter (principal); G43.909 Migraine, unspecified, not intractable, without status migrainosus; R40.2142 Coma scale, eyes open, spontaneous, at arrival to emergency department; R40.2252 Coma scale, best verbal response, oriented, at arrival to emergency department; R40.2362 Coma scale, best motor response, obeys commands, at arrival to emergency department; Z88.8 Allergy status to other drugs, medicaments and biological substances; W01.198A Fall on same level from slipping, tripping and stumbling with subsequent striking against other object, initial encounter
CPT/HCPCS: 70450; 72125

== ENCOUNTER 2019-12-10 04:13 | Emergency (ER) | payer OTHER ==
[~2019-12-10] VITALS: Ht 185 cm; Wt 75.0 kg
[2019-12-10] MEDS ORDERED: NS IV 1000 ML 1,000 ML IV SCH (04:27)
[2019-12-10 04:29] VITALS: BP_SYST 101; BP_SYST 113; BP_SYST 118; BP_DIAS 74; BP_DIAS 83; BP_DIAS 87
[2019-12-10 04:34] LABS: BASOPHILS % (AUTO) 0 % (0-10); EOSINOPHILS # (AUTO) 0.3 10^3/uL (0.0-0.3); EOSINOPHILS % (AUTO) 4 % (0-10); HEMATOCRIT 42 % (40-54); LYMPHOCYTES # (AUTO) 1.8 X 10^3 (1.0-4.0); LYMPHOCYTES % (AUTO) 25 % (12-44); MEAN CORPUSCULAR HEMOGLOBIN 31 PG (25-34); MEAN CORPUSCULAR HGB CONC 33 G/DL (32-36); MEAN CORPUSCULAR VOLUME 93 FL (80-99); MEAN PLATELET VOLUME 11.1 FL (7.4-10.4); MONOCYTES % (AUTO) 14 % (0-12); NEUTROPHILS % (AUTO) 57 % (42-75); PLATELET COUNT 256 10^3/uL (130-400); RED CELL DISTRIBUTION WIDTH 12.7 % (10.0-14.5); WHITE BLOOD COUNT 7.1 10^3/uL (4.3-11.0)
[2019-12-10] MEDS ORDERED: KETOROLAC 30 MG/ML VIAL IVP ONE (04:45)
[2019-12-10 04:48] LABS: ALANINE AMINOTRANSFERASE 13 U/L (0-55); ALBUMIN 4.2 GM/DL (3.2-4.5); ALKALINE PHOSPHATASE 44 U/L (40-136); BILIRUBIN,TOTAL 0.3 MG/DL (0.1-1.0); BUN/CREATININE RATIO 17; CALCIUM 9.3 MG/DL (8.5-10.1); CARBON DIOXIDE 24 MMOL/L (21-32); CHLORIDE 106 MMOL/L (98-107); CREATININE SERUM 1.16 MG/DL (0.60-1.30); GFR ESTIMATED > 60; GLUCOSE 103 MG/DL (70-105); MAGNESIUM 2.2 MG/DL (1.6-2.4); POTASSIUM 4.2 MMOL/L (3.6-5.0); SODIUM 140 MMOL/L (135-145); TOTAL PROTEIN 6.5 GM/DL (6.4-8.2)
--- NOTE | 2019-12-10 05:40 | ED Syncope ---
General Chief Complaint: Dizziness/Syncope Stated Complaint: SYNCOPE,DIAZ Nursing Triage Note: TO ED ROOM 5 VIA [facility] AFTER PT GOT UP TO USE BATHROOM AND "PASSED OUT" AND FELL. S/O CALLED EMS. PT STATES HE WOKE UP BACK IN BED AND DOESN'T REALLY REMEMBER WHAT HAPPENED AFTER "PASSING OUT". C/O RIGHT SIDE HEAD PAIN THAT IS RECURRENT AFTER TBI. HX OF PASSING OUT WITH HEADACHES. Source of Information: Patient, EMS, Old Records Exam Limitations: No Limitations History of Present Illness Date Seen by Provider: Dec 10, 2019 Time Seen by Provider: 05:35 Initial Comments This 44-year-old gentleman presents to the emergency room via EMS after having a syncopal or near syncopal episode at home. He had a significant bradycardia injury about a year ago and has been experiencing right sided headaches frequently since then and has also had numerous syncopal episodes. He has reportedly undergone a thorough neurologic evaluation including EEG. No specific cause of his syncopal episodes has been yet discovered. Patient and his report that he has not had cardiac monitoring performed in the outpatient setting. He denies that he chest pain or palpitations. Patient reports he developed headache early in the day yesterday. He took his triptan but headache persisted. He got up in the night and was "seeing spots". He then does not recall what exactly happened after that. His reports she heard a thump. She came into the room and found him on his hands and knees on the floor. Patient presumes he hit his hand on the door because he had some mild hand pain at that time that has since resolved. Patient denies any new head or neck pain. He has the same persistent right-sided head pain that he has had since the head trauma a year ago. He had another ER visit about 6 weeks ago when he had a similar syncopal episode resulting in a fall in the garage, striking his head on the concrete. Since then he has been more confused and agitated according to his . He is also had some slurring of his speech since then. CT scan done at that time was negative. Allergies and Home Medications Allergies Coded Allergies: promethazine (Verified Allergy, Unknown, Itching, 10/27/19) Home Medications No Active Prescriptions or Reported Meds Patient Home Medication List Home Medication List Reviewed: Yes Review of Systems Constitutional: no symptoms reported EENTM: no symptoms reported Respiratory: no symptoms reported Cardiovascular: no symptoms reported Gastrointestinal: no symptoms reported Genitourinary: no symptoms reported Musculoskeletal: no symptoms reported Skin: no symptoms reported Psychiatric/Neurological: See HPI Past Saerian-Tttvnw-Xumusn Hx Past Med/Social Hx: Reviewed and Corrections made Patient Social History Alcohol Use: Denies Use Recreational Drug Use: No Smoking Status: Never a Smoker Recent Infectious Disease Expo: No Recent Hopitalizations: No Physical Abuse: No Sexual Abuse: No Mistreated: No Fear: No Immunizations Up To Date Tetanus Booster (TDap): Unknown Seasonal Allergies Seasonal Allergies: No Past Medical History Surgeries: Yes (HERNIA REPAIR) Abdominal Respiratory: No Cardiac: No Neurological: Yes (TBI) Concussion, Headaches /Migraines, Traumatic Brain Injury Genitourinary: No Gastrointestinal: Yes Abdominal Hernia Musculoskeletal: No Endocrine: No HEENT: No Cancer: No Psychosocial: Yes Anxiety Integumentary: No Blood Disorders: No Physical Exam Vital Signs Vital Signs - First Documented 12/10/19 12/10/19 04:13 06:53 Temp 36.4 Pulse 61 Resp 16 B/P (MAP) 118/82 (94) Pulse Ox 98 O2 Delivery Room Air Capillary Refill : Less Than 3 Seconds Height, Weight, BMI Height: 6'1.00" Weight: 155lbs. 0oz. 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 Cranial Nerves: Normal Hearing, Normal Speech, PERRL Motor/Sensory: No Motor Deficit, No Sensory Deficit, No Pronator Drift Skin: Normal Color, Warm/Dry Progress/Results/Core Measures Results/Orders Lab Results Laboratory Tests Test 12/10/19 04:15 12/10/19 04:50 Range/Units White Blood Count 7.1 4.3-11.0 10^3/uL Red Blood Count 4.52 4.35-5.85 10^6/uL Hemoglobin 14.0 13.3-17.7 G/DL Hematocrit 42 40-54 % Mean Corpuscular Volume 93 80-99 FL Mean Corpuscular Hemoglobin 31 25-34 PG Mean Corpuscular Hemoglobin Concent 33 32-36 G/DL Red Cell Distribution Width 12.7 10.0-14.5 % Platelet Count 256 130-400 10^3/uL Mean Platelet Volume 11.1 H 7.4-10.4 FL Neutrophils (%) (Auto) 57 42-75 % Lymphocytes (%) (Auto) 25 12-44 % Monocytes (%) (Auto) 14 H 0-12 % Eosinophils (%) (Auto) 4 0-10 % Basophils (%) (Auto) 0 0-10 % Neutrophils # (Auto) 4.0 1.8-7.8 X 10^3 Lymphocytes # (Auto) 1.8 1.0-4.0 X 10^3 Monocytes # (Auto) 1.0 0.0-1.0 X 10^3 Eosinophils # (Auto) 0.3 0.0-0.3 10^3/uL Basophils # (Auto) 0.0 0.0-0.1 10^3/uL Sodium Level 140 135-145 MMOL/L Potassium Level 4.2 3.6-5.0 MMOL/L Chloride Level 106 98-107 MMOL/L Carbon Dioxide Level 24 21-32 MMOL/L Anion Gap 10 5-14 MMOL/L Blood Urea Nitrogen 20 H 7-18 MG/DL Creatinine 1.16 0.60-1.30 MG/DL Estimat Glomerular Filtration Rate > 60 BUN/Creatinine Ratio 17 Glucose Level 103 70-105 MG/DL Calcium Level 9.3 8.5-10.1 MG/DL Corrected Calcium 9.1 8.5-10.1 MG/DL Magnesium Level 2.2 1.6-2.4 MG/DL Total Bilirubin 0.3 0.1-1.0 MG/DL Aspartate Amino Transf (AST/SGOT) 12 5-34 U/L Alanine Aminotransferase (ALT/SGPT) 13 0-55 U/L Alkaline Phosphatase 44 40-136 U/L Total Protein 6.5 6.4-8.2 GM/DL Albumin 4.2 3.2-4.5 GM/DL Troponin I < 0.028 <0.028 NG/ML My Orders Orders - FILI NIEVES MD Cbc With Automated Diff (12/10/19 04:27) Comprehensive Metabolic Panel (12/10/19 04:27) Magnesium (12/10/19 04:27) Ua Culture If Indicated (12/10/19 04:27) Ekg Tracing (12/10/19 04:27) Monitor-Rhythm Ecg Trace Only (12/10/19 04:27) Orthostatic Vital Signs (Adult (12/10/19 04:27) Ed Iv/Invasive Line Start (12/10/19 04:27) Ns Iv 1000 Ml (Sodium Chloride 0.9%) (12/10/19 04:27) Troponin I (12/10/19 04:36) Ketorolac Injection (Toradol Injection) (12/10/19 04:45) Medications Given in ED Current Medications Medications Dose Ordered Sig/Myesha Route Start Time Stop Time Status Last Admin Dose Admin Ketorolac Tromethamine 15 mg ONCE ONCE IVP 12/10/19 04:45 12/10/19 04:46 DC 12/10/19 04:57 15 MG Vital Signs/I&O 12/10/19 12/10/19 12/10/19 04:13 04:29 06:53 Temp 36.4 36.2 Pulse 61 58 58 61 62 Resp 16 18 B/P (MAP) 118/82 (94) 118/83 (95) 107/70 (87) 101/87 (92) 113/74 (87) Pulse Ox 98 O2 Delivery Room Air Blood Pressure Mean: 87 Progress Progress Note : Progress Note Workup was unremarkable. Patient had no arrhythmias, chest pain, or palpi tations during his ER stay. Headache was treated with Toradol and IV fluids. This did notably improve his pain. We discussed the potential for steroid administration but decided against it. His reported he had been irritable and agitated after his last ER visit. He had received dexamethasone for treatment of headache during that visit which may contributed to his irritabi lity. I strongly encouraged the patient to seek cardiac consultation and cardiac monitoring to ensure his syncopal episodes are not cardiac in origin. I discussed this with his as well. Initial ECG Impression Date: Dec 10, 2019 Initial ECG Impression Time: 04:30 Initial ECG Rate: 52 Initial ECG Rhythm: Normal Sinus Comment Sinus rhythm with no abnormal intervals. Mild ST elevation with an early repolarization morphology and pattern. No ischemia suspected. Departure Impression Primary Impression: Syncope Qualified Codes: R55 - Syncope and collapse Disposition: 01 HOME, SELF-CARE Condition: Improved Departure-Patient Inst. Decision time for Depature: 06:47 Referrals: ALVINO TERRAZAS DO (PCP/Family) Primary Care Physician Patient Instructions: Syncope (Fainting) (DC) Add. Discharge Instructions: Follow-up with Dr. 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 I recommended that you have extended cardiac monitoring performed to ensure syncopal episodes are not related to heart rhythm issues. Avoid any activities or situations that would present particular hazards if another syncopal episode occurred. Continue with therapies directed by your neurology teams to treat your headaches. Contact your doctor or return to the emergency room if you're having worsening symptoms or are not improving as expected. All discharge instructions reviewed with patient and/or family. Voiced understanding. Scripts No Active Prescriptions or Reported Meds Copy Copies To 1: ALVINO TERRAZAS JOSHUA T MD Dec 10, 2019 05:40
[2019-12-10 06:53] VITALS: BP 107/70
== END 2019-12-10 06:57 | disposition home or self-care (01) ==
LOC: EDUNIT# 04:16 → ER 04:20
DX: R55 Syncope and collapse (principal); G43.909 Migraine, unspecified, not intractable, without status migrainosus; F41.9 Anxiety disorder, unspecified; Z88.8 Allergy status to other drugs, medicaments and biological substances
CPT/HCPCS: 36415; 80053; 83735; 84484; 85025; 93041; 96374

== ENCOUNTER 2019-12-31 19:24 | Emergency (ER) | payer OTHER ==
[~2019-12-31] VITALS: Ht 185 cm; Wt 75.0 kg
[2019-12-31] MEDS ORDERED: KETOROLAC 60 MG/2 ML VIAL IM STA (19:59)
--- NOTE | 2019-12-31 21:19 | ED Neurological Problem ---
General Chief Complaint: Neurological Problems Stated Complaint: SEIZURE Source: patient Exam Limitations: no limitations History of Present Illness Date Seen by Provider: Dec 31, 2019 Time Seen by Provider: 19:50 Initial Comments Here with report of syncope and silent seizure in the setting of migraine headache. Patient has history of previous events similar. He has significant head injury in the past and since has suffered from syncopal episodes that seem to be related to silent seizures per neurology and associated with migraine headache. Onset tonight of behavior change with severe headache and then syncopal episode. 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 Family did give his headache medicine and then called here. They were instructed to give Tylenol and tizanidine. They did give that to him. Onset about 5:15. Arrive later when he wasn't completely cleared. He is feeling better currently. No fever or chills. No nausea vomiting or diarrhea. Was confused afterwards slight postictal state but clears over about 2 hours. This is typical for him. Timing/Duration: 1-3 hours Severity: moderate Associated Symptoms: confusion Allergies and Home Medications Allergies Coded Allergies: promethazine (Verified Allergy, Unknown, Itching, 10/27/19) Home Medications No Active Prescriptions or Reported Meds Patient Home Medication List Home Medication List Reviewed: Yes Review of Systems Review of Systems Constitutional: see HPI Eyes: Photophobia; Denies Vision Changes; Other (eye pain especially on the right with right eyelid drooping which is typical.) Ears, Nose, Mouth, Throat: no symptoms reported Respiratory: no symptoms reported Cardiovascular: see HPI Gastrointestinal: no symptoms reported Genitourinary: no symptoms reported Musculoskeletal: no symptoms reported Skin: no symptoms reported (she did fax him upstairs and overall) Psychiatric/Neurological: See HPI, Headache (right-sided) Past Dqaedmf-Txqpbc-Ysawme Hx Past Med/Social Hx: Reviewed Nursing Past Med/Soc Hx Patient Social History Alcohol Use: Denies Use Recreational Drug Use: No Recent Foreign Travel: No Contact w/Someone Who Travel: No Recent Hopitalizations: No Immunizations Up To Date Tetanus Booster (TDap): Unknown Seasonal Allergies Seasonal Allergies: No Past Medical History Surgeries: Yes (HERNIA REPAIR) Abdominal Respiratory: No Cardiac: No Neurological: Yes (TBI) Concussion, Headaches /Migraines, Seizure Disorder, Traumatic Brain Injury Genitourinary: No Gastrointestinal: Yes Abdominal Hernia Musculoskeletal: No Endocrine: No HEENT: No Cancer: No Psychosocial: Yes Anxiety Integumentary: No Blood Disorders: No Family Medical History Reviewed Nursing Family Hx Physical Exam Vital Signs Capillary Refill : Height, Weight, BMI Height: 6'1.00" Weight: 155lbs. 0oz. 70.926021lv; 21.00 BMI Method:Stated General Appearance: WD/WN, no apparent distress HEENT: PERRL/EOMI, pharynx normal Neck: full range of motion, supple Respiratory: lungs clear, normal breath sounds Cardiovascular: regular rate, rhythm, no murmur Gastrointestinal: non tender, soft Extremities: non-tender, normal inspection Neurologic/Psychiatric: alert, oriented x 3 Crainal Nerves: normal hearing, normal speech, PERRL Coordination/Gait: normal gait Motor/Sensory: no motor deficit, no sensory deficit Skin: normal color, warm/dry Progress/Results/Core Measures Results/Orders My Orders Orders - LAINA CLARK MD Ketorolac Injection (Toradol Injection) (12/31/19 19:59) Progress Progress Note : Progress Note Seen and evaluated. Patient is doing better now. Toradol 60 mg IM. Monitor patient. 2100: Patient overall doing much better and would like to go home. I think it safe and no other evaluation needed at this point. Discharged home with return precautions. Patient verbalize understanding instructions and agreement with plan. agrees. Departure Impression Primary Impression: Atypical migraine Additional Impression: Seizure disorder Disposition: 01 HOME, SELF-CARE Condition: Improved Departure-Patient Inst. Decision time for Depature: 21:19 Referrals: ALVINO TERRAZAS DO (PCP/Family) Primary Care Physician Patient Instructions: Migraines in Adults, Seizures, Adult (DC) Add. Discharge Instructions: All discharge instructions reviewed with patient and/or family. Voiced understanding. Continue home medications as previously prescribed. Follow-up with your neurologist for recheck and further evaluation. Return for return of symptoms, weakness, vision problems, vomiting, difficulty with walking or speech or other concerns as needed. Scripts No Active Prescriptions or Reported Meds LAINA CLARK MD Dec 31, 2019 21:19
[2019-12-31 21:43] VITALS: BP 113/75
== END 2019-12-31 21:44 | disposition home or self-care (01) ==
LOC: EDUNIT# 19:24 → ER 19:25
DX: G43.809 Other migraine, not intractable, without status migrainosus (principal); G40.909 Epilepsy, unspecified, not intractable, without status epilepticus; F41.9 Anxiety disorder, unspecified; Z88.8 Allergy status to other drugs, medicaments and biological substances; Z87.820 Personal history of traumatic brain injury
CPT/HCPCS: 99284

== ENCOUNTER 2020-01-17 18:31 | Emergency (ER) | payer OTHER ==
[~2020-01-17] VITALS: Ht 185 cm; Wt 75.0 kg
[2020-01-17 19:10] LABS: BASOPHILS # (AUTO) 0.1 10^3/uL (0.0-0.1); BASOPHILS % (AUTO) 1 % (0-10); EOSINOPHILS # (AUTO) 0.3 10^3/uL (0.0-0.3); EOSINOPHILS % (AUTO) 4 % (0-10); HEMATOCRIT 43 % (40-54); HEMOGLOBIN 14.7 G/DL (13.3-17.7); LYMPHOCYTES # (AUTO) 2.7 X 10^3 (1.0-4.0); LYMPHOCYTES % (AUTO) 33 % (12-44); MEAN CORPUSCULAR HEMOGLOBIN 32 PG (25-34); MEAN CORPUSCULAR HGB CONC 34 G/DL (32-36); MEAN CORPUSCULAR VOLUME 92 FL (80-99); MEAN PLATELET VOLUME 10.8 FL (7.4-10.4); MONOCYTES # (AUTO) 0.8 X 10^3 (0.0-1.0); MONOCYTES % (AUTO) 10 % (0-12); NEUTROPHILS # (AUTO) 4.2 X 10^3 (1.8-7.8); NEUTROPHILS % (AUTO) 52 % (42-75); PLATELET COUNT 270 10^3/uL (130-400); RED CELL DISTRIBUTION WIDTH 12.3 % (10.0-14.5)
--- OUTSIDE RECORDS SUMMARY | 2020-01-17 19:14 | XMS REPORT | Clinical Summary ---
Author Author [facility] Organization [facility] Address Unknown Phone Unavailable Care Team Providers Care American [employer] Studies Professor Name Role Phone Girish Varghese DO PCP Source Comments Some departments are not documenting in the electronic medical record. If you d o not see the information that you expected, contact Release of Information in [facility] [employer] Information Management department at [phone] for further assistan ce in locating additional records.[facility] Allergies No Known Allergies Medications End Date Status Medication Sig Dispensed Refills Start Date Active prochlorperazine maleate Take one 20 tablet 0 0 (COMPAZINE) 10 mg tablet tablet by 9 mouth every 6 hours as needed (Headache). Active Magnesium 200 mg tab Take two 20 tablet 0 01/26 tablets by 9 mouth every 6 hours as needed. With headache cocktail Active Problems Not on file Social History Date Tobacco Use Types Packs/Day Years Used Never Smoker Smokeless Tobacco: Never Used Drinks/Week oz/Week Comments Alcohol Use Never Alcohol Habits Answer Date Recorded How often do you have a drink containing alcohol? 

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
--- NOTE | 2020-01-17 19:17 | NUR ---
PT TO CT DEPT VIA COT IN STABLE CONDITION
[2020-01-17 19:21] LABS: ALBUMIN 4.2 GM/DL (3.2-4.5); CHLORIDE 105 MMOL/L (98-107); POTASSIUM 3.9 MMOL/L (3.6-5.0); SODIUM 138 MMOL/L (135-145)
[2020-01-17 19:22] LABS: CALCIUM 8.8 MG/DL (8.5-10.1)
[2020-01-17 19:23] LABS: GLUCOSE 95 MG/DL (70-105)
[2020-01-17 19:24] LABS: TOTAL PROTEIN 7.1 GM/DL (6.4-8.2)
[2020-01-17 19:25] LABS: BILIRUBIN,TOTAL 0.2 MG/DL (0.1-1.0); CARBON DIOXIDE 23 MMOL/L (21-32)
[2020-01-17 19:27] LABS: ALKALINE PHOSPHATASE 45 U/L (40-136); CREATININE SERUM 1.02 MG/DL (0.60-1.30); GFR ESTIMATED > 60
[2020-01-17 19:28] LABS: BUN/CREATININE RATIO 17
[2020-01-17 19:30] LABS: ALANINE AMINOTRANSFERASE 21 U/L (0-55)
--- NOTE | 2020-01-17 19:30 | ED Head Injury ---
General Chief Complaint: Trauma-Non Activation Stated Complaint: HX TBI/HIT IN HEAD BY BASKETBALL GOAL Nursing Triage Note: PT PRESENTS TO THE ED WITH SPOUSE, PT IS ALERT TO NAME, NOT PLACE OR TIME. SPOUSE STATES THAT THE PT HAS A SIGNIFICANT TBI HX AND SEIZURE HX, WAS REPORTED TO HAVE BEEN STRUCK IN THE BACK OF HIS HEAD WHILE OUTSIDE NEAR THE BARN. PT WAS FOUND LYING ON HIS BACK AND NOT ANSWERING QUESTIONS APPROPRIATELY Source: patient Exam Limitations: no limitations History of Present Illness Date Seen by Provider: January 17, 2020 Time Seen by Provider: 19:29 Initial Comments 44-year-old male who is brought to the emergency room by his spouse for a reported head injury. He was working on a basketball goal with his son when he states that he was struck in the back of her head by the basketball goal itself. He was outside near the barn and when his spouse found him he was lying down on the ground and not answering questions appropriately. His spouse states that this is how he reacts when he gets one of his chronic migraines. The patient reports that he does have a migraine at this time. He is alert and oriented to person place and time. He denies any nausea or vomiting. Is unsure if there was loss of consciousness. Significant other states that he has had numerous head injuries in the past and has "silent seizures" Loss of Consciousness: unsure Associated Systoms: Headaches Allergies and Home Medications Allergies Coded Allergies: promethazine (Verified Allergy, Unknown, Itching, 10/27/19) Home Medications No Active Prescriptions or Reported Meds Patient Home Medication List Home Medication List Reviewed: Yes Review of Systems Review of Systems Constitutional: see HPI; No chills, No fever Psychiatric/Neurological: See HPI, Headache, Other (head injury) All Other Systems Reviewed Negative Unless Noted: Yes Past Nhaexjb-Fwyokl-Xlesyq Hx Past Med/Social Hx: Reviewed Nursing Past Med/Soc Hx Patient Social History Alcohol Use: Denies Use Recreational Drug Use: No Smoking Status: Never a Smoker Recent Foreign Travel: No Contact w/Someone Who Travel: No Recent Infectious Disease Expo: No Recent Hopitalizations: No Immunizations Up To Date Tetanus Booster (TDap): Unknown Seasonal Allergies Seasonal Allergies: No Past Medical History Surgeries: Yes (HERNIA REPAIR) Abdominal Respiratory: No Cardiac: No Neurological: Yes (TBI) Concussion, Headaches /Migraines, Seizure Disorder, Traumatic Brain Injury Genitourinary: No Gastrointestinal: Yes Abdominal Hernia Musculoskeletal: No Endocrine: No HEENT: No Cancer: No Psychosocial: Yes Anxiety Integumentary: No Blood Disorders: No Family Medical History Reviewed Nursing Family Hx Physical Exam Vital Signs Vital Signs - First Documented 01/17/20 18:40 Temp 36.7 Pulse 58 Resp 20 B/P (MAP) 130/81 (97) Pulse Ox 98 O2 Delivery Room Air Capillary Refill : Less Than 3 Seconds Height, Weight, BMI Height: 6'1.00" Weight: 155lbs. 0oz. [id number]; 21.00 BMI Method:Stated General Appearance: WD/WN, no apparent distress HEENT: PERRL/EOMI, normal ENT inspection, TMs normal, pharynx normal Neck: non-tender, full range of motion, normal inspection Cardiovascular: normal peripheral pulses, regular rate, rhythm, no edema, no gallop, no JVD, no murmur Respiratory: chest non-tender, lungs clear, normal breath sounds, no respiratory distress, no accessory muscle use Gastrointestinal: normal bowel sounds, non tender, soft, no organomegaly, no pulsatile mass Extremities: normal capillary refill Psychiatric: oriented x 3, lethargic Crainal Nerves: normal hearing, normal speech, PERRL Coordination/Gait: normal finger to nose, normal gait Skin: normal color, warm/dry Henna Coma Score Best Eye Response: (4) Open Spontaneously Best Verbal Response: (5) Oriented Best Motor Response: (6) Obeys Commands Progress/Results/Core Measures Results/Orders Lab Results Laboratory Tests Test 01/17/20 18:52 Range/Units White Blood Count 8.0 4.3-11.0 10^3/uL Red Blood Count 4.65 4.35-5.85 10^6/uL Hemoglobin 14.7 13.3-17.7 G/DL Hematocrit 43 40-54 % Mean Corpuscular Volume 92 80-99 FL Mean Corpuscular Hemoglobin 32 25-34 PG Mean Corpuscular Hemoglobin Concent 34 32-36 G/DL Red Cell Distribution Width 12.3 10.0-14.5 % Platelet Count 270 130-400 10^3/uL Mean Platelet Volume 10.8 H 7.4-10.4 FL Neutrophils (%) (Auto) 52 42-75 % Lymphocytes (%) (Auto) 33 12-44 % Monocytes (%) (Auto) 10 0-12 % Eosinophils (%) (Auto) 4 0-10 % Basophils (%) (Auto) 1 0-10 % Neutrophils # (Auto) 4.2 1.8-7.8 X 10^3 Lymphocytes # (Auto) 2.7 1.0-4.0 X 10^3 Monocytes # (Auto) 0.8 0.0-1.0 X 10^3 Eosinophils # (Auto) 0.3 0.0-0.3 10^3/uL Basophils # (Auto) 0.1 0.0-0.1 10^3/uL Sodium Level 138 135-145 MMOL/L Potassium Level 3.9 3.6-5.0 MMOL/L Chloride Level 105 98-107 MMOL/L Carbon Dioxide Level 23 21-32 MMOL/L Anion Gap 10 5-14 MMOL/L Blood Urea Nitrogen 17 7-18 MG/DL Creatinine 1.02 0.60-1.30 MG/DL Estimat Glomerular Filtration Rate > 60 BUN/Creatinine Ratio 17 Glucose Level 95 70-105 MG/DL Calcium Level 8.8 8.5-10.1 MG/DL Corrected Calcium 8.6 8.5-10.1 MG/DL Total Bilirubin 0.2 0.1-1.0 MG/DL Aspartate Amino Transf (AST/SGOT) 17 5-34 U/L Alanine Aminotransferase (ALT/SGPT) 21 0-55 U/L Alkaline Phosphatase 45 40-136 U/L Total Protein 7.1 6.4-8.2 GM/DL Albumin 4.2 3.2-4.5 GM/DL My Orders Orders - EMILY MENDOZA Comprehensive Metabolic Panel (01/17/20 18:55) Ed Iv/Invasive Line Start (01/17/20 18:55) Cbc With Automated Diff (01/17/20 18:55) Ct Head/Cervical Spine Wo (01/17/20 18:55) Ketorolac Injection (Toradol Injection) (01/17/20 19:45) Medications Given in ED Current Medications Medications Dose Ordered Sig/Myesha Route Start Time Stop Time Status Last Admin Dose Admin Ketorolac Tromethamine 30 mg ONCE ONCE IVP 01/17/20 19:45 01/17/20 19:46 DC 01/17/20 20:30 30 MG Vital Signs/I&O 01/17/20 01/17/20 18:40 20:42 Temp 36.7 36.7 Pulse 58 60 Resp 20 18 B/P (MAP) 130/81 (97) 119/78 (97) Pulse Ox 98 98 O2 Delivery Room Air Room Air Blood Pressure Mean: 97 Progress Progress Note : Time: 19:39 Progress Note I have seen and evaluated the patient. I've informed him of his laboratory and imaging studies. He is rating his pain had a 9 out of 10. He is requesting pain medication at this time. He will be given a IV dose of Toradol. He agrees with plan of care and plans for discharge. Diagnostic Imaging Diagonstic Imaging: CT Comments NAME: ETHAN GOLDBERG [facility] REC#: [id number] PT STATUS: REG ER : 1975 PHYSICIAN: EMILY MENDOZA ADMIT DATE: 01/17/20/ER Draft Date of Exam:01/17/20 CT HEAD/CERVICAL SPINE WO PROCEDURE: CT head and CT cervical spine without contrast. TECHNIQUE: Multiple contiguous axial images were obtained through the brain and cervical spine without the use of intravenous contrast. Sagittal and coronal reformations through the cervical spine were then performed. Auto Exposure Controls were utilized during the CT exam to meet ALARA standards for radiation dose reduction. 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 Increased falls. Trauma to the posterior head. Head and neck injury COMPARISON: 10/27/2019 FINDINGS: The ventricles and cortical sulci are age-appropriate. There is no midline shift or mass effect. No acute intracranial hemorrhage is seen. The calvarium appears intact. Paranasal sinuses appear clear. The cervical spine is normal in alignment without spondylolisthesis. Mild degenerative changes are seen at C6-C7. Vertebral body heights are preserved. No acute fracture is seen. No bony fragments or hyperdense fluid collections are seen in the spinal canal. Soft tissues about the cervical spine demonstrate no acute abnormality. IMPRESSION: 1. No acute intracranial hemorrhage or calvarium fracture seen. 2. Mild degenerative change in the cervical spine with no acute fracture seen. Dictated on workstation # [id number] Dict: 01/17/201926 Trans: 01/17/201934 [facility] [id number] Interpreted by: SANJAY MARTINEZ MD Electronically signed by: Departure Impression Primary Impression: Minor head injury Additional Impression: Concussion Disposition: 01 HOME, SELF-CARE Condition: Stable/Unchanged Departure-Patient Inst. Decision time for Depature: 20:36 Referrals: ALVINO TERRAZAS DO (PCP/Family) Primary Care Physician Patient Instructions: Minor Head Injury (DC) Add. Discharge Instructions: You may use ibuprofen and Tylenol as needed for headaches. Try to limit exposure to loud noises, bright lights, phone or tablet screens, television. Follow-up with his regular provider within 1 week for recheck. Return back to the emergency room for worsening symptoms, change in level of consciousness, nausea vomiting, or any other concerns as needed. All discharge instructions reviewed with patient and/or family. Voiced understanding. Scripts No Active Prescriptions or Reported Meds EMILY MENDOZA January 17, 2020 19:30
--- NOTE | 2020-01-17 19:36 | Diagnostic Imaging Report ---
PROCEDURE: CT head and CT cervical spine without contrast. TECHNIQUE: Multiple contiguous axial images were obtained through the brain and cervical spine without the use of intravenous contrast. Sagittal and coronal reformations through the cervical spine were then performed. Auto Exposure Controls were utilized during the CT exam to meet ALARA standards for radiation dose reduction. 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 Increased falls. Trauma to the posterior head. Head and neck injury COMPARISON: 10/27/2019 FINDINGS: The ventricles and cortical sulci are age-appropriate. There is no midline shift or mass effect. No acute intracranial hemorrhage is seen. The calvarium appears intact. Paranasal sinuses appear clear. The cervical spine is normal in alignment without spondylolisthesis. Mild degenerative changes are seen at C6-C7. Vertebral body heights are preserved. No acute fracture is seen. No bony fragments or hyperdense fluid collections are seen in the spinal canal. Soft tissues about the cervical spine demonstrate no acute abnormality. IMPRESSION: 1. No acute intracranial hemorrhage or calvarium fracture seen. 2. Mild degenerative change in the cervical spine with no acute fracture seen. Dictated by: Dictated on workstation # [id number]
[2020-01-17] MEDS ORDERED: KETOROLAC 30 MG/ML VIAL IVP ONE (19:45)
[2020-01-17 20:42] VITALS: BP 119/78
== END 2020-01-17 20:43 | disposition home or self-care (01) ==
LOC: EDUNIT# 18:31 → ER 18:32
DX: S06.0X9A Concussion with loss of consciousness of unspecified duration, initial encounter (principal); R40.2142 Coma scale, eyes open, spontaneous, at arrival to emergency department; R40.2252 Coma scale, best verbal response, oriented, at arrival to emergency department; R40.2362 Coma scale, best motor response, obeys commands, at arrival to emergency department; Z88.8 Allergy status to other drugs, medicaments and biological substances; Z87.820 Personal history of traumatic brain injury; W22.8XXA Striking against or struck by other objects, initial encounter
CPT/HCPCS: 36415; 70450; 72125; 80053; 85025